=== PATIENT | male | born 1950 | race Caucasian/White ===

== ENCOUNTER 2017-08-18 07:17 | Inpatient (IN) ==
[2017-08-18] MEDS ORDERED: ALBUTEROL 2.5 MG/3 ML NEB RESP TX SCH (07:30)
[2017-08-18] MEDS ORDERED: PIPERACILLIN/TAZOBACTAM 3,375 MG in SODIUM CHLORIDE 0.9% 100 ML IV STA (07:52)
[2017-08-18 08:14] LABS: Basophils % 0.1 % (0.0-0.8); Eosinophils % 0.6 % (0.00-10.9); Hemoglobin 11.3 GM/DL (14.0-18.0); Immature Granulocytes % 0.7 %; Immature Granulocytes Absolute 0.05 #; Lymphocytes # 0.5 10*3/uL (1.4-4.0); Lymphocytes % 7.9 % (21.2-54.2); Mean Corpuscular HGB Conc 33.2 GM/DL (32-36); Mean Corpuscular Hemoglobin 30 PG (27-34); Mean Corpuscular Volume 90.2 FL (87-102); Mean Platelet Volume 9.6 FL (9.6-12.0); Monocytes # 0.4 10*3/uL (0.11-0.8); Monocytes % 5.9 % (1.7-12.7); Neutrophils # 5.7 10*3/uL (1.4-7.4); Neutrophils % 84.8 % (38.7-73.9); Red Blood Count 3.77 MC/CUMM (3.8-5.5); Red Cell Distribution Width 14.4 % (9.3-17.3); White Blood Count 6.7 T/CUMM (4-12)
[2017-08-18 08:30] LABS: Platelet Count 96 T/CUMM (130-400)
[2017-08-18] MEDS ORDERED: PIPERACILLIN/TAZOBACTAM 3,375 MG VIAL IV ONE (08:37)
[2017-08-18] MEDS ORDERED: SODIUM CHLORIDE 0.9% 100 ML IV ONE (08:38)
[2017-08-18 08:43] LABS: Alanine Aminotransferase 31 U/L (16-61); Alkaline Phosphatase 85 U/L (45-117); Aspartate Amino Transferase 47 U/L (0-37); Blood Urea Nitrogen 19 MG/DL (7-18); Calcium 9.1 MG/DL (8.5-10.1); Glucose 153 MG/DL (74-106); Osmolality,Calculated 281.5 MOS/KG (273-304); Sodium 139 MMOL/L (136-145); Total Protein 6.7 G/DL (6.4-8.3); Troponin I Only < 0.015 NG/ML (0.00-0.045)
[2017-08-18] MEDS ORDERED: ONDANSETRON 4 MG/2 ML VIAL IV PRN (09:40)
[2017-08-18] MEDS ORDERED: GLUCAGON 1 MG VIAL IM PRN ×2 (09:40→10:37)
[2017-08-18] MEDS ORDERED: DEXTROSE 50% 25 GM/50 ML VIAL IV PRN ×2 (09:40→10:37)
[2017-08-18] MEDS ORDERED: PROPOFOL 1,000 MG/100 ML BOTTLE IV ONE ×2 (10:48→12:58)
[2017-08-18] MEDS ORDERED: VECURONIUM 10 MG VIAL IV ONE ×2 (10:49→11:00)
[2017-08-18] MEDS ORDERED: hydrALAZINE 20 MG/1 ML VIAL IV ONE (11:00)
[2017-08-18] MEDS ORDERED: MIDAZOLAM 2 MG/2 ML VIAL IV ONE (11:00)
[2017-08-18] MEDS ORDERED: LABETALOL 200 MG/40 ML VIAL IV ONE ×2 (11:00→11:19)
[2017-08-18] MEDS ORDERED: hydrALAZINE 20 MG/1 ML VIAL ONE (11:02)
[2017-08-18] MEDS ORDERED: MIDAZOLAM 2 MG/2 ML VIAL ONE (11:08)
[2017-08-18] MEDS ORDERED: ETOMIDATE 20 MG/10 ML VIAL IV ONE (11:24)
[2017-08-18] MEDS ORDERED: SUCCINYLCHOLINE 200 MG/10 ML VIAL ONE (11:25)
[2017-08-18] MEDS ORDERED: INSULIN LISPRO 100 UNIT/ML SUBCUT SCH (11:30)
[2017-08-18 12:27] LABS: ABG Base Excess 2.6 MMOL/L (-2.5-2.5); ABG HCO3 26.8 MMOL/L (20-26); ABG PCO2 44.4 MM HG (35-48); ABG PH 7.404 (7.35-7.45); ABG TCO2 24.9 MMOL/L (23-27)
[2017-08-18] MEDS: LACTATED RINGERS 1,000 ML IV SCH ×3 (14:31→22:39)
[2017-08-18] MEDS: PROPOFOL 1,000 MG/100 ML BOTTLE IV SCH ×2 (14:33→20:55)
[2017-08-18] MEDS: VANCOMYCIN INJ 1,250 MG in SODIUM CHLORIDE 0.45% 250 ML IV SCH ×2 (14:35→23:35)
[2017-08-18] MEDS: INSULIN REGULAR 100 UNIT/ML SUBCUT SCH ×2 (14:35→18:10)
[2017-08-18] MEDS: PROPRANOLOL 20 MG TABLET PO SCH ×2 (18:10→20:34)
[2017-08-18] MEDS: PIPERACILLIN/TAZOBACTAM 3,375 MG in SODIUM CHLORIDE 0.9% 100 ML IV SCH ×2 (18:16→23:34)
[2017-08-19] MEDS: INSULIN REGULAR 100 UNIT/ML SUBCUT SCH ×4 (00:19→17:27)
[2017-08-19] MEDS: PROPOFOL 1,000 MG/100 ML BOTTLE IV SCH ×4 (01:28→22:12)
[2017-08-19 04:07] LABS: ABG Base Excess 5.2 MMOL/L (-2.5-2.5); ABG HCO3 29.1 MMOL/L (20-26); ABG Oxygen Saturation 99.2 % (95-100); ABG PCO2 39.4 MM HG (35-48); ABG PH 7.476 (7.35-7.45); ABG TCO2 25.6 MMOL/L (23-27); Allen Test Positive; Pt O2 Delivery Device Ventilator
[2017-08-19 05:46] LABS: INR 1.1; PT Patient Result 11.7 SECS; Partial Thromboplastin Time 26.6 SECS (0-40)
[2017-08-19 05:50] LABS: Basophils % 0.4 % (0.0-0.8); Eosinophils # 0.1 10*3/uL (0.0-0.87); Eosinophils % 1.2 % (0.00-10.9); Hematocrit 29.1 VOL% (42.0-52.0); Hemoglobin 9.8 GM/DL (14.0-18.0); Immature Granulocytes % 1.5 %; Immature Granulocytes Absolute 0.07 #; Lymphocytes # 0.6 10*3/uL (1.4-4.0); Lymphocytes % 12.9 % (21.2-54.2); Mean Corpuscular HGB Conc 33.7 GM/DL (32-36); Mean Corpuscular Hemoglobin 30 PG (27-34); Mean Corpuscular Volume 88.7 FL (87-102); Mean Platelet Volume 9.6 FL (9.6-12.0); Monocytes # 0.3 10*3/uL (0.11-0.8); Neutrophils # 3.8 10*3/uL (1.4-7.4); Platelet Count 71 T/CUMM (130-400); Red Blood Count 3.28 MC/CUMM (3.8-5.5); Red Cell Distribution Width 14.5 % (9.3-17.3); White Blood Count 4.8 T/CUMM (4-12)
[2017-08-19 06:13] LABS: Albumin 2.3 G/DL (3.4-5.0); Bilirubin,Direct 0.35 MG/DL (0.0-0.20); Bilirubin,Indirect 0.5 MG/DL (0.0-1.0); Bilirubin,Total 0.8 MG/DL (0.2-1.0); Total Protein 5.2 G/DL (6.4-8.3)
[2017-08-19 06:14] LABS: Calcium 7.9 MG/DL (8.5-10.1); Osmolality,Calculated 282.4 MOS/KG (273-304); Potassium 3.8 MMOL/L (3.5-5.1)
[2017-08-19 06:21] LABS: Hypochromasia 1+; Microcytosis 1+; Ovalocytes Few; Platelet Estimate Decreased
[2017-08-19 06:31] LABS: Albumin 2.3 G/DL (3.4-5.0); Bilirubin,Total 0.8 MG/DL (0.2-1.0); Calcium 8.1 MG/DL (8.5-10.1); Magnesium 1.8 MG/DL (1.8-2.4); Osmolality,Calculated 283.4 MOS/KG (273-304); Phosphorous 3.2 MG/DL (2.5-4.9); Potassium 3.8 MMOL/L (3.5-5.1); Total Protein 5.1 G/DL (6.4-8.3)
[2017-08-19 09:23] LABS: ABG Base Excess 5.1 MMOL/L (-2.5-2.5); ABG HCO3 29.6 MMOL/L (20-26); ABG Oxygen Saturation 98.1 % (95-100); ABG PCO2 43.1 MM HG (35-48); ABG PH 7.454 (7.35-7.45); ABG PO2 118.4 MM HG (80-95); ABG TCO2 30.9 MMOL/L (23-27); Pt O2 Delivery Device Ventilator
[2017-08-19] MEDS: PIPERACILLIN/TAZOBACTAM 3,375 MG in SODIUM CHLORIDE 0.9% 100 ML IV SCH ×2 (09:40→15:00)
[2017-08-19] MEDS: PROPRANOLOL 20 MG TABLET PO SCH ×3 (09:41→20:32)
[2017-08-19] MEDS: LACTATED RINGERS 1,000 ML IV SCH (09:41)
[2017-08-19] MEDS: VANCOMYCIN INJ 1,250 MG in SODIUM CHLORIDE 0.45% 250 ML IV SCH (10:58)
[2017-08-19 12:28] LABS: Hepatitis A Ab IgM Quant 0.02 Index; Hepatitis A Ab IgM Result Negative (Negative); Hepatitis B Core IgM Result Negative (Negative); Hepatitis B Surface Ag Quant < 0.10 Index; Hepatitis B Surface Ag Result Negative (Negative); Hepatitis C Virus Ab Quant 0.32 Index; Hepatitis C Virus Ab Result Negative (Negative)
[2017-08-19] MEDS ORDERED: MIDAZOLAM 2 MG/2 ML VIAL ONE (12:47)
[2017-08-19] MEDS ORDERED: fentaNYL 100 MCG/2 ML VIAL ONE (12:47)
[2017-08-19] MEDS ORDERED: SEVOFLURANE 1 UNIT/15 MINUTE INH ONE (12:47)
[2017-08-20] MEDS: INSULIN REGULAR 100 UNIT/ML SUBCUT SCH ×4 (00:05→17:34)
[2017-08-20] MEDS: PIPERACILLIN/TAZOBACTAM 3,375 MG in SODIUM CHLORIDE 0.9% 100 ML IV SCH ×3 (00:23→16:15)
[2017-08-20] MEDS: VANCOMYCIN INJ 1,250 MG in SODIUM CHLORIDE 0.45% 250 ML IV SCH ×3 (00:24→23:39)
[2017-08-20] MEDS: LACTATED RINGERS 1,000 ML IV SCH ×2 (00:25→16:17)
[2017-08-20 05:49] LABS: Magnesium 1.7 MG/DL (1.8-2.4); Phosphorous 2.8 MG/DL (2.5-4.9); Prealbumin 5.6 MG/DL (20-40)
[2017-08-20] MEDS: PROPOFOL 1,000 MG/100 ML BOTTLE IV SCH ×2 (06:19→17:17)
[2017-08-20 07:54] LABS: Allen Test Positive; Pt O2 Delivery Device Ventilator
[2017-08-20 07:56] LABS: ABG Base Excess 3.1 MMOL/L (-2.5-2.5); ABG HCO3 27.2 MMOL/L (20-26); ABG Oxygen Saturation 98.9 % (95-100); ABG PCO2 46.9 MM HG (35-48); ABG PH 7.394 (7.35-7.45); ABG TCO2 25.9 MMOL/L (23-27)
[2017-08-20] MEDS: PROPRANOLOL 20 MG TABLET PO SCH ×3 (07:59→21:50)
[2017-08-20] MEDS: MORPHINE 2 MG/1 ML SYRINGE IV PRN ×2 (10:15→22:22)
[2017-08-20] MEDS ORDERED: IBUPROFEN LYSINE IV SCH (14:00)
[2017-08-20] MEDS ORDERED: ACETAMINOPHEN 325 MG/10.15 ML UDCUP NG SCH (14:00)
[2017-08-20] MEDS: hydrALAZINE 20 MG/1 ML VIAL IV PRN (14:05)
[2017-08-20] MEDS: KETOROLAC 30 MG/1 ML VIAL IV PRN (14:05)
[2017-08-20] MEDS: LORazepam 2 MG/1 ML VIAL IV PRN ×3 (14:06→23:44)
[2017-08-21] MEDS: PIPERACILLIN/TAZOBACTAM 3,375 MG in SODIUM CHLORIDE 0.9% 100 ML IV SCH ×2 (00:26→08:30)
[2017-08-21] MEDS: INSULIN REGULAR 100 UNIT/ML SUBCUT SCH ×4 (00:28→18:11)
[2017-08-21 02:43] LABS: ABG Base Excess 3.9 MMOL/L (-2.5-2.5); ABG HCO3 30.3 MMOL/L (20-26); ABG Oxygen Saturation 93.8 % (95-100); ABG PCO2 54.1 MM HG (35-48); ABG PH 7.366 (7.35-7.45); ABG PO2 72.7 MM HG (80-95); Allen Test Positive
[2017-08-21] MEDS: LACTATED RINGERS 1,000 ML IV SCH ×2 (05:42→19:15)
[2017-08-21] MEDS ORDERED: LIDOCAINE 2% 20 ML VIAL RESP TX ONE (08:13)
[2017-08-21] MEDS ORDERED: LIDOCAINE 1% 20 ML VIAL MISC INJ ONE (08:13)
[2017-08-21] MEDS: PROPRANOLOL 20 MG TABLET PO SCH ×3 (08:33→20:35)
[2017-08-21] MEDS: methylPREDNISolone SOD SUC 40 MG/1 ML VIAL IV SCH ×2 (08:46→20:35)
[2017-08-21] MEDS: PROPOFOL 1,000 MG/100 ML BOTTLE IV SCH ×2 (11:41→19:45)
[2017-08-21] MEDS: cefTRIAXone 1,000 MG in SYRINGE 1 EACH IV SCH (14:57)
[2017-08-21] MEDS: metroNIDAZOLE INJ 500 MG in PREMIX 1 EACH IV SCH ×2 (15:51→22:58)
[2017-08-22] MEDS: INSULIN REGULAR 100 UNIT/ML SUBCUT SCH ×4 (00:24→18:35)
[2017-08-22 03:02] LABS: ABG Base Excess 3.7 MMOL/L (-2.5-2.5); ABG HCO3 29.9 MMOL/L (20-26); ABG Oxygen Saturation 98.3 % (95-100); ABG PCO2 53.1 MM HG (35-48); ABG PH 7.368 (7.35-7.45); ABG PO2 131.2 MM HG (80-95); ABG TCO2 31.5 MMOL/L (23-27); Allen Test Positive; Pt O2 Delivery Device Ventilator
[2017-08-22] MEDS: PROPOFOL 1,000 MG/100 ML BOTTLE IV SCH ×2 (03:06→07:29)
[2017-08-22 05:13] LABS: Basophils % 0.1 % (0.0-0.8); Eosinophils % 0.1 % (0.00-10.9); Hematocrit 30.2 VOL% (42.0-52.0); Hemoglobin 9.9 GM/DL (14.0-18.0); Immature Granulocytes % 0.9 %; Lymphocytes # 0.7 10*3/uL (1.4-4.0); Lymphocytes % 6.5 % (21.2-54.2); Mean Corpuscular HGB Conc 32.8 GM/DL (32-36); Mean Corpuscular Hemoglobin 30 PG (27-34); Mean Platelet Volume 10.6 FL (9.6-12.0); Monocytes # 0.6 10*3/uL (0.11-0.8); Monocytes % 5.5 % (1.7-12.7); Neutrophils # 9.6 10*3/uL (1.4-7.4); Neutrophils % 86.9 % (38.7-73.9); Platelet Count 102 T/CUMM (130-400); Red Blood Count 3.32 MC/CUMM (3.8-5.5); Red Cell Distribution Width 13.8 % (9.3-17.3)
[2017-08-22 05:33] LABS: Calcium 9.3 MG/DL (8.5-10.1); Magnesium 2.4 MG/DL (1.8-2.4); Osmolality,Calculated 291.4 MOS/KG (273-304)
[2017-08-22] MEDS: metroNIDAZOLE INJ 500 MG in PREMIX 1 EACH IV SCH ×3 (06:17→23:18)
[2017-08-22 08:33] LABS: Albumin 2.2 G/DL (3.4-5.0); Bilirubin,Total 0.4 MG/DL (0.2-1.0); Calcium 9.2 MG/DL (8.5-10.1); Osmolality,Calculated 293.3 MOS/KG (273-304); Total Protein 5.6 G/DL (6.4-8.3)
[2017-08-22] MEDS: PROPRANOLOL 20 MG TABLET PO SCH ×3 (08:51→21:28)
[2017-08-22] MEDS: methylPREDNISolone SOD SUC 40 MG/1 ML VIAL IV SCH ×2 (08:52→21:28)
[2017-08-22] MEDS: LACTATED RINGERS 1,000 ML IV SCH ×2 (08:52→22:50)
[2017-08-22] MEDS ORDERED: DEXMEDETOMIDINE 200 MCG in SODIUM CHLORIDE 0.9% 48 ML IV SCH (09:30)
[2017-08-22] MEDS ORDERED: ACETAMINOPHEN 325 MG/10.15 ML UDCUP NG PRN (15:00)
[2017-08-22] MEDS: cefTRIAXone 1,000 MG in SYRINGE 1 EACH IV SCH (15:41)
[2017-08-22] MEDS ORDERED: DEXMEDETOMIDINE 200 MCG in SODIUM CHLORIDE 0.9% 48 ML IV PRN (17:30)
[2017-08-22] MEDS ORDERED: PROPOFOL 1,000 MG/100 ML BOTTLE IV PRN (17:30)
[2017-08-22] MEDS: MORPHINE 2 MG/1 ML SYRINGE IV PRN ×2 (18:35→21:28)
[2017-08-22] MEDS: LORazepam 2 MG/1 ML VIAL IV PRN (22:25)
[2017-08-23] MEDS: MORPHINE 2 MG/1 ML SYRINGE IV PRN ×5 (00:22→15:45)
[2017-08-23] MEDS: INSULIN REGULAR 100 UNIT/ML SUBCUT SCH ×4 (01:23→18:00)
[2017-08-23] MEDS: metroNIDAZOLE INJ 500 MG in PREMIX 1 EACH IV SCH ×3 (06:34→23:32)
[2017-08-23 06:39] LABS: Basophils % 0.1 % (0.0-0.8); Hematocrit 32.3 VOL% (42.0-52.0); Hemoglobin 10.3 GM/DL (14.0-18.0); Immature Granulocytes % 1.3 %; Immature Granulocytes Absolute 0.22 #; Lymphocytes # 0.8 10*3/uL (1.4-4.0); Lymphocytes % 4.9 % (21.2-54.2); Mean Corpuscular HGB Conc 31.9 GM/DL (32-36); Mean Corpuscular Hemoglobin 29 PG (27-34); Mean Platelet Volume 10.2 FL (9.6-12.0); Monocytes # 0.7 10*3/uL (0.11-0.8); Monocytes % 4.2 % (1.7-12.7); Neutrophils # 15.4 10*3/uL (1.4-7.4); Neutrophils % 89.5 % (38.7-73.9); Platelet Count 158 T/CUMM (130-400); Red Blood Count 3.55 MC/CUMM (3.8-5.5); White Blood Count 17.3 T/CUMM (4-12)
[2017-08-23 07:15] LABS: Albumin 2.4 G/DL (3.4-5.0); Bilirubin,Total 0.8 MG/DL (0.2-1.0); Calcium 9.2 MG/DL (8.5-10.1); Osmolality,Calculated 296.1 MOS/KG (273-304); Potassium 5.3 MMOL/L (3.5-5.1); Total Protein 6.1 G/DL (6.4-8.3)
[2017-08-23 07:37] LABS: Lymphocytes 5 % (20-55); Segmented Neutrophils 93 % (50-85); Total Cells Counted 100
[2017-08-23 07:38] LABS: Hypochromasia 1+; Microcytosis Slight; Ovalocytes Slight; Platelet Estimate Normal
[2017-08-23] MEDS: PROPRANOLOL 20 MG TABLET PO SCH ×3 (09:46→21:12)
[2017-08-23] MEDS: methylPREDNISolone SOD SUC 40 MG/1 ML VIAL IV SCH ×2 (09:53→21:12)
[2017-08-23] MEDS: LACTATED RINGERS 1,000 ML IV SCH (12:25)
[2017-08-23] MEDS: ALBUTEROL/IPRATROPIUM 3 ML NEB RESP TX SCH ×2 (12:42→19:30)
[2017-08-23] MEDS: cefTRIAXone 1,000 MG in SYRINGE 1 EACH IV SCH (14:26)
[2017-08-23] MEDS: KETOROLAC 30 MG/1 ML VIAL IV PRN (14:26)
[2017-08-23] MEDS: LORazepam 2 MG/1 ML VIAL IV PRN (17:40)
[2017-08-23 21:50] LABS: Apearance,Urine Slightly Hazy (Clear); Bilirubin,Urine Negative (Negative); Blood, Urine Small mg/dL (Negative); Glucose,Urine (UA) Negative (Negative); Granular Casts,Urine 6 /LPF (0-1); Hyaline Casts,Urine 11 /LPF (0-3); Ketones,Urine Negative (Negative); Mucus,Urine Occasional /LPF (Occasional); Nitrite,Urine Negative (Negative); Protein,Urine Negative; RBC,Urine 22 /HPF (0-4); Urine Color Amber (Yellow); Urine Specific Gravity 1.024 (1.001-1.035); Urine Urobilinogen < 2.0 EU/DL (0.2-1.0); WBC,Urine 1 /HPF (0-6)
[2017-08-24] MEDS: MORPHINE 2 MG/1 ML SYRINGE IV PRN ×2 (00:21→04:56)
[2017-08-24] MEDS: LORazepam 2 MG/1 ML VIAL IV PRN ×3 (00:22→18:00)
[2017-08-24] MEDS: INSULIN REGULAR 100 UNIT/ML SUBCUT SCH ×4 (00:37→18:37)
[2017-08-24] MEDS: ALBUTEROL/IPRATROPIUM 3 ML NEB RESP TX SCH ×4 (01:19→20:12)
[2017-08-24] MEDS: LEVOFLOXACIN INJ 750 MG in PREMIX 1 EACH IV SCH (01:22)
[2017-08-24 05:21] LABS: Basophils % 0.1 % (0.0-0.8); Hematocrit 31.7 VOL% (42.0-52.0); Hemoglobin 10.1 GM/DL (14.0-18.0); Immature Granulocytes Absolute 0.12 #; Lymphocytes # 0.8 10*3/uL (1.4-4.0); Lymphocytes % 6.3 % (21.2-54.2); Mean Corpuscular HGB Conc 31.9 GM/DL (32-36); Mean Corpuscular Hemoglobin 29 PG (27-34); Mean Corpuscular Volume 92.2 FL (87-102); Monocytes # 0.6 10*3/uL (0.11-0.8); Neutrophils # 10.6 10*3/uL (1.4-7.4); Neutrophils % 87.6 % (38.7-73.9); Platelet Count 134 T/CUMM (130-400); Red Blood Count 3.44 MC/CUMM (3.8-5.5); Red Cell Distribution Width 13.9 % (9.3-17.3); White Blood Count 12.1 T/CUMM (4-12)
[2017-08-24 06:35] LABS: Calcium 9.2 MG/DL (8.5-10.1)
[2017-08-24 07:01] LABS: Osmolality,Calculated 301.1 MOS/KG (273-304)
[2017-08-24 07:02] LABS: Potassium 5.3 MMOL/L (3.5-5.1)
[2017-08-24] MEDS: LACTATED RINGERS 1,000 ML IV SCH (07:05)
[2017-08-24] MEDS: methylPREDNISolone SOD SUC 40 MG/1 ML VIAL IV SCH ×2 (08:30→20:42)
[2017-08-24] MEDS: PROPRANOLOL 20 MG TABLET PO SCH ×3 (08:31→20:43)
[2017-08-24] MEDS: KETOROLAC 30 MG/1 ML VIAL IV PRN ×2 (10:53→17:59)
[2017-08-25] MEDS: INSULIN REGULAR 100 UNIT/ML SUBCUT SCH ×4 (00:17→18:17)
[2017-08-25] MEDS: ALBUTEROL/IPRATROPIUM 3 ML NEB RESP TX SCH ×4 (00:57→19:22)
[2017-08-25] MEDS: LEVOFLOXACIN INJ 750 MG in PREMIX 1 EACH IV SCH (01:50)
[2017-08-25] MEDS: LACTATED RINGERS 1,000 ML IV SCH ×2 (03:05→07:07)
[2017-08-25 03:55] LABS: Basophils % 0.1 % (0.0-0.8); Hemoglobin 10.1 GM/DL (14.0-18.0); Immature Granulocytes % 1.2 %; Immature Granulocytes Absolute 0.15 #; Lymphocytes # 0.6 10*3/uL (1.4-4.0); Lymphocytes % 4.9 % (21.2-54.2); Mean Corpuscular HGB Conc 31.6 GM/DL (32-36); Mean Corpuscular Hemoglobin 29 PG (27-34); Mean Corpuscular Volume 92.8 FL (87-102); Monocytes # 0.9 10*3/uL (0.11-0.8); Monocytes % 7.1 % (1.7-12.7); Neutrophils # 10.7 10*3/uL (1.4-7.4); Neutrophils % 86.7 % (38.7-73.9); Platelet Count 152 T/CUMM (130-400); Red Blood Count 3.45 MC/CUMM (3.8-5.5); Red Cell Distribution Width 13.9 % (9.3-17.3); White Blood Count 12.3 T/CUMM (4-12)
[2017-08-25 04:18] LABS: Lymphocytes 6 % (20-55); Segmented Neutrophils 93 % (50-85); Total Cells Counted 100
[2017-08-25 04:20] LABS: Ovalocytes 1+; Platelet Estimate Normal
[2017-08-25 04:21] LABS: Hypochromasia 1+
[2017-08-25 04:24] LABS: Calcium 9.4 MG/DL (8.5-10.1); Potassium 5.4 MMOL/L (3.5-5.1)
[2017-08-25 06:43] LABS: Magnesium 2.6 MG/DL (1.8-2.4); Phosphorous 3.3 MG/DL (2.5-4.9); Prealbumin 9.3 MG/DL (20-40)
[2017-08-25] MEDS: methylPREDNISolone SOD SUC 40 MG/1 ML VIAL IV SCH (09:24)
[2017-08-25] MEDS: PROPRANOLOL 20 MG TABLET PO SCH ×3 (09:24→20:35)
[2017-08-25] MEDS: SULFAMETHOX/TRIMETHOPRIM 200-40 MG/5 ML -20 ML UDCUP PEG SCH ×2 (10:55→20:35)
[2017-08-25] MEDS: LORazepam 2 MG/1 ML VIAL IV PRN (23:01)
[2017-08-26] MEDS: ALBUTEROL/IPRATROPIUM 3 ML NEB RESP TX SCH ×4 (00:42→19:12)
[2017-08-26] MEDS: INSULIN REGULAR 100 UNIT/ML SUBCUT SCH ×5 (01:35→23:53)
[2017-08-26] MEDS: LEVOFLOXACIN INJ 750 MG in PREMIX 1 EACH IV SCH (02:14)
[2017-08-26 06:44] LABS: Calcium 9.6 MG/DL (8.5-10.1); Osmolality,Calculated 301.8 MOS/KG (273-304)
[2017-08-26] MEDS: methylPREDNISolone SOD SUC 40 MG/1 ML VIAL IV SCH (07:41)
[2017-08-26] MEDS: LACTULOSE 20 GM/30 ML UDCUP PO SCH ×2 (08:23→21:08)
[2017-08-26] MEDS: SULFAMETHOX/TRIMETHOPRIM 200-40 MG/5 ML -20 ML UDCUP PEG SCH ×2 (08:24→21:08)
[2017-08-26] MEDS: PROPRANOLOL 20 MG TABLET PO SCH ×3 (08:24→21:08)
[2017-08-26] MEDS: RIFAXIMIN 550 MG TABLET PO SCH ×2 (08:24→21:08)
[2017-08-26] MEDS: hydrALAZINE 20 MG/1 ML VIAL IV PRN (18:16)
[2017-08-27] MEDS: ALBUTEROL/IPRATROPIUM 3 ML NEB RESP TX SCH ×4 (00:14→19:31)
[2017-08-27] MEDS: INSULIN REGULAR 100 UNIT/ML SUBCUT SCH ×3 (06:05→18:12)
[2017-08-27] MEDS: SULFAMETHOX/TRIMETHOPRIM 200-40 MG/5 ML -20 ML UDCUP PEG SCH ×2 (09:50→20:56)
[2017-08-27] MEDS: LACTULOSE 20 GM/30 ML UDCUP PO SCH ×2 (09:51→20:57)
[2017-08-27] MEDS: PROPRANOLOL 20 MG TABLET PO SCH ×3 (09:52→20:57)
[2017-08-27] MEDS: RIFAXIMIN 550 MG TABLET PO SCH ×2 (09:53→20:57)
[2017-08-27] MEDS: NYSTATIN 500,000 UNIT/5 ML UDCUP SWISH/SWAL SCH ×4 (10:45→20:56)
[2017-08-27] MEDS: LORazepam 2 MG/1 ML VIAL IV PRN (20:56)
[2017-08-28] MEDS: INSULIN REGULAR 100 UNIT/ML SUBCUT SCH ×4 (01:25→17:37)
[2017-08-28] MEDS: ALBUTEROL/IPRATROPIUM 3 ML NEB RESP TX SCH ×4 (01:45→21:04)
[2017-08-28] MEDS: LACTULOSE 20 GM/30 ML UDCUP PO SCH ×2 (09:34→21:17)
[2017-08-28] MEDS: NYSTATIN 500,000 UNIT/5 ML UDCUP SWISH/SWAL SCH ×4 (09:34→21:18)
[2017-08-28] MEDS: RIFAXIMIN 550 MG TABLET PO SCH ×2 (09:35→21:19)
[2017-08-28] MEDS: PROPRANOLOL 20 MG TABLET PO SCH ×3 (09:35→21:19)
[2017-08-28] MEDS: SULFAMETHOX/TRIMETHOPRIM 200-40 MG/5 ML -20 ML UDCUP PEG SCH ×2 (10:02→21:17)
[2017-08-28] MEDS: LORazepam 2 MG/1 ML VIAL IV PRN ×2 (14:24→21:18)
[2017-08-29] MEDS: INSULIN REGULAR 100 UNIT/ML SUBCUT SCH ×4 (00:53→19:24)
[2017-08-29] MEDS: ALBUTEROL/IPRATROPIUM 3 ML NEB RESP TX SCH ×4 (01:21→19:34)
[2017-08-29] MEDS: LORazepam 2 MG/1 ML VIAL IV PRN ×3 (04:09→22:38)
[2017-08-29 05:40] LABS: Calcium 8.5 MG/DL (8.5-10.1); Magnesium 1.8 MG/DL (1.8-2.4); Osmolality,Calculated 285.4 MOS/KG (273-304); Phosphorous 3.2 MG/DL (2.5-4.9); Potassium 4.6 MMOL/L (3.5-5.1)
[2017-08-29] MEDS: PROPRANOLOL 20 MG TABLET PO SCH ×3 (10:02→20:35)
[2017-08-29] MEDS: SULFAMETHOX/TRIMETHOPRIM 200-40 MG/5 ML -20 ML UDCUP PEG SCH ×2 (10:02→20:35)
[2017-08-29] MEDS: NYSTATIN 500,000 UNIT/5 ML UDCUP SWISH/SWAL SCH ×3 (10:03→20:34)
[2017-08-29] MEDS: RIFAXIMIN 550 MG TABLET PO SCH ×2 (10:03→20:36)
[2017-08-29] MEDS: LACTULOSE 20 GM/30 ML UDCUP PO SCH ×2 (10:03→20:34)
[2017-08-30] MEDS: INSULIN REGULAR 100 UNIT/ML SUBCUT SCH ×4 (00:57→17:44)
[2017-08-30] MEDS: ALBUTEROL/IPRATROPIUM 3 ML NEB RESP TX SCH ×4 (01:21→20:39)
[2017-08-30] MEDS: LORazepam 2 MG/1 ML VIAL IV PRN ×3 (06:10→23:00)
[2017-08-30] MEDS: PROPRANOLOL 20 MG TABLET PO SCH ×3 (09:31→20:32)
[2017-08-30] MEDS: RIFAXIMIN 550 MG TABLET PO SCH ×2 (09:31→20:33)
[2017-08-30] MEDS: LACTULOSE 20 GM/30 ML UDCUP PO SCH ×2 (09:32→20:33)
[2017-08-30] MEDS: SULFAMETHOX/TRIMETHOPRIM 200-40 MG/5 ML -20 ML UDCUP PEG SCH ×2 (09:32→20:32)
[2017-08-30] MEDS: NYSTATIN 500,000 UNIT/5 ML UDCUP SWISH/SWAL SCH ×4 (09:32→20:32)
[2017-08-30] MEDS: CLORAZEPATE 7.5 MG TABLET PO PRN (20:32)
[2017-08-31] MEDS: INSULIN REGULAR 100 UNIT/ML SUBCUT SCH ×4 (00:20→18:00)
[2017-08-31] MEDS: ALBUTEROL/IPRATROPIUM 3 ML NEB RESP TX SCH ×4 (01:40→19:56)
[2017-08-31] MEDS: LORazepam 2 MG/1 ML VIAL IV PRN ×3 (03:00→21:16)
[2017-08-31 03:51] LABS: ABG Base Excess 7.9 MMOL/L (-2.5-2.5); ABG HCO3 33.6 MMOL/L (20-26); ABG Oxygen Saturation 97.2 % (95-100); ABG PCO2 53.9 MM HG (35-48); ABG PH 7.413 (7.35-7.45); ABG PO2 99.6 MM HG (80-95); ABG TCO2 35.3 MMOL/L (23-27); Allen Test Positive
[2017-08-31] MEDS: SULFAMETHOX/TRIMETHOPRIM 200-40 MG/5 ML -20 ML UDCUP PEG SCH ×2 (08:40→21:16)
[2017-08-31] MEDS: LACTULOSE 20 GM/30 ML UDCUP PO SCH ×2 (08:41→21:16)
[2017-08-31] MEDS: PROPRANOLOL 20 MG TABLET PO SCH ×3 (08:41→21:16)
[2017-08-31] MEDS: RIFAXIMIN 550 MG TABLET PO SCH ×2 (08:41→21:16)
[2017-08-31] MEDS: NYSTATIN 500,000 UNIT/5 ML UDCUP SWISH/SWAL SCH ×4 (08:41→21:15)
[2017-08-31] MEDS: CLORAZEPATE 7.5 MG TABLET PO PRN ×2 (11:30→21:16)
[2017-09-01] MEDS: ALBUTEROL/IPRATROPIUM 3 ML NEB RESP TX SCH ×4 (00:38→20:31)
[2017-09-01] MEDS: INSULIN REGULAR 100 UNIT/ML SUBCUT SCH ×4 (00:55→18:44)
[2017-09-01] MEDS: LORazepam 2 MG/1 ML VIAL IV PRN ×2 (00:55→16:35)
[2017-09-01 05:50] LABS: Magnesium 1.8 MG/DL (1.8-2.4); Phosphorous 2.7 MG/DL (2.5-4.9); Prealbumin 5.4 MG/DL (20-40)
[2017-09-01] MEDS: LACTULOSE 20 GM/30 ML UDCUP PO SCH ×2 (09:24→21:38)
[2017-09-01] MEDS: MUPIROCIN 2% OINT 22 GM TUBE TOP SCH ×2 (09:25→21:15)
[2017-09-01] MEDS: NYSTATIN 500,000 UNIT/5 ML UDCUP SWISH/SWAL SCH ×4 (09:25→21:15)
[2017-09-01] MEDS: RIFAXIMIN 550 MG TABLET PO SCH ×2 (09:26→21:14)
[2017-09-01] MEDS: PROPRANOLOL 20 MG TABLET PO SCH ×3 (09:26→21:14)
[2017-09-01] MEDS: SULFAMETHOX/TRIMETHOPRIM 200-40 MG/5 ML -20 ML UDCUP PEG SCH ×2 (12:20→21:15)
[2017-09-01] MEDS: CLORAZEPATE 7.5 MG TABLET PO PRN (21:14)
[2017-09-02] MEDS: INSULIN REGULAR 100 UNIT/ML SUBCUT SCH ×4 (00:03→17:29)
[2017-09-02] MEDS: ALBUTEROL/IPRATROPIUM 3 ML NEB RESP TX SCH ×4 (00:18→20:02)
[2017-09-02] MEDS ORDERED: ALBUTEROL 2.5 MG/3 ML NEB RESP TX PRN (10:35)
[2017-09-02] MEDS ORDERED: GLIMEPIRIDE 4 MG TABLET PO PRN (10:35)
[2017-09-02] MEDS: IPRATROPIUM 500 MCG/2.5 ML NEB RESP TX SCH ×3 (11:33→14:02)
[2017-09-02] MEDS: LACTULOSE 20 GM/30 ML UDCUP PO SCH ×4 (12:30→21:26)
[2017-09-02] MEDS: MUPIROCIN 2% OINT 22 GM TUBE TOP SCH ×2 (12:30→23:56)
[2017-09-02] MEDS: PROPRANOLOL 20 MG TABLET PO SCH ×3 (12:30→21:23)
[2017-09-02] MEDS: RIFAXIMIN 550 MG TABLET PO SCH ×4 (12:31→21:26)
[2017-09-02] MEDS: NYSTATIN 500,000 UNIT/5 ML UDCUP SWISH/SWAL SCH ×4 (12:32→21:26)
[2017-09-02] MEDS: SPIRONOLACTONE 50 MG TABLET PO SCH (13:33)
[2017-09-02] MEDS: GABAPENTIN 300 MG CAPSULE PO SCH ×2 (13:34→21:23)
[2017-09-02] MEDS: ALFUZOSIN 10 MG TABLET PO SCH (13:34)
[2017-09-02] MEDS: SULFAMETHOX/TRIMETHOPRIM 200-40 MG/5 ML -20 ML UDCUP PEG SCH (13:44)
[2017-09-02] MEDS: BUDESONIDE/FORMOTEROL 160-4.5 INHALER 6 GM INH SCH ×2 (17:34→21:27)
[2017-09-02] MEDS: TAMSULOSIN 0.4 MG CAPSULE PO SCH (21:23)
[2017-09-02] MEDS: CLORAZEPATE 7.5 MG TABLET PO PRN (21:23)
[2017-09-03] MEDS: ALBUTEROL/IPRATROPIUM 3 ML NEB RESP TX SCH ×4 (01:13→19:20)
[2017-09-03] MEDS: INSULIN REGULAR 100 UNIT/ML SUBCUT SCH ×4 (01:49→18:06)
[2017-09-03 06:00] LABS: Basophils % 0.2 % (0.0-0.8); Eosinophils # 0.1 10*3/uL (0.0-0.87); Eosinophils % 2.3 % (0.00-10.9); Hematocrit 27.3 VOL% (42.0-52.0); Hemoglobin 8.8 GM/DL (14.0-18.0); Immature Granulocytes Absolute 0.06 #; Lymphocytes # 0.7 10*3/uL (1.4-4.0); Lymphocytes % 11.6 % (21.2-54.2); Mean Corpuscular HGB Conc 32.2 GM/DL (32-36); Mean Corpuscular Hemoglobin 29 PG (27-34); Mean Corpuscular Volume 89.5 FL (87-102); Mean Platelet Volume 11.2 FL (9.6-12.0); Monocytes # 0.9 10*3/uL (0.11-0.8); Neutrophils # 4.3 10*3/uL (1.4-7.4); Neutrophils % 69.9 % (38.7-73.9); Platelet Count 128 T/CUMM (130-400); Red Blood Count 3.05 MC/CUMM (3.8-5.5); Red Cell Distribution Width 14.6 % (9.3-17.3); White Blood Count 6.2 T/CUMM (4-12)
[2017-09-03 06:37] LABS: Calcium 8.3 MG/DL (8.5-10.1); Magnesium 1.6 MG/DL (1.8-2.4); Osmolality,Calculated 272.8 MOS/KG (273-304); Potassium 4.1 MMOL/L (3.5-5.1)
[2017-09-03] MEDS: GABAPENTIN 300 MG CAPSULE PO SCH ×2 (11:19→22:25)
[2017-09-03] MEDS: BUDESONIDE/FORMOTEROL 160-4.5 INHALER 6 GM INH SCH ×2 (11:19→23:37)
[2017-09-03] MEDS: PROPRANOLOL 20 MG TABLET PO SCH ×3 (11:19→22:25)
[2017-09-03] MEDS: SPIRONOLACTONE 50 MG TABLET PO SCH (11:19)
[2017-09-03] MEDS: RIFAXIMIN 550 MG TABLET PO SCH ×2 (11:19→22:30)
[2017-09-03] MEDS: LACTULOSE 20 GM/30 ML UDCUP PO SCH ×2 (11:19→22:24)
[2017-09-03] MEDS: ALFUZOSIN 10 MG TABLET PO SCH (11:19)
[2017-09-03] MEDS: NYSTATIN 500,000 UNIT/5 ML UDCUP SWISH/SWAL SCH ×4 (11:19→22:25)
[2017-09-03] MEDS: MUPIROCIN 2% OINT 22 GM TUBE TOP SCH ×2 (11:19→22:38)
[2017-09-03] MEDS: IPRATROPIUM 500 MCG/2.5 ML NEB RESP TX SCH (12:36)
[2017-09-03] MEDS: CLORAZEPATE 7.5 MG TABLET PO PRN (22:24)
[2017-09-03] MEDS: TAMSULOSIN 0.4 MG CAPSULE PO SCH (22:25)
[2017-09-04] MEDS: INSULIN REGULAR 100 UNIT/ML SUBCUT SCH ×4 (00:32→18:45)
[2017-09-04] MEDS: ALBUTEROL/IPRATROPIUM 3 ML NEB RESP TX SCH ×4 (00:40→20:05)
[2017-09-04 06:23] LABS: Magnesium 1.5 MG/DL (1.8-2.4); Prealbumin 4.1 MG/DL (20-40)
[2017-09-04] MEDS: RIFAXIMIN 550 MG TABLET PO SCH ×2 (09:14→21:33)
[2017-09-04] MEDS: CLORAZEPATE 7.5 MG TABLET PO PRN ×2 (09:14→21:32)
[2017-09-04] MEDS: PROPRANOLOL 20 MG TABLET PO SCH ×3 (09:14→21:32)
[2017-09-04] MEDS: GABAPENTIN 300 MG CAPSULE PO SCH ×2 (09:14→21:33)
[2017-09-04] MEDS: SPIRONOLACTONE 50 MG TABLET PO SCH (09:14)
[2017-09-04] MEDS: ALFUZOSIN 10 MG TABLET PO SCH (09:14)
[2017-09-04] MEDS: MUPIROCIN 2% OINT 22 GM TUBE TOP SCH ×2 (09:15→21:39)
[2017-09-04] MEDS: NYSTATIN 500,000 UNIT/5 ML UDCUP SWISH/SWAL SCH ×4 (09:15→21:38)
[2017-09-04] MEDS: LACTULOSE 20 GM/30 ML UDCUP PO SCH ×2 (09:15→21:38)
[2017-09-04] MEDS: BUDESONIDE/FORMOTEROL 160-4.5 INHALER 6 GM INH SCH ×2 (09:21→21:38)
[2017-09-04] MEDS: MAGNESIUM OXIDE 400 MG TABLET PO SCH ×2 (14:10→21:32)
[2017-09-04] MEDS: TAMSULOSIN 0.4 MG CAPSULE PO SCH (21:32)
[2017-09-05] MEDS: ALBUTEROL/IPRATROPIUM 3 ML NEB RESP TX SCH ×2 (00:27→07:37)
[2017-09-05] MEDS: INSULIN REGULAR 100 UNIT/ML SUBCUT SCH ×2 (00:41→06:35)
[2017-09-05 08:26] VITALS: BP 112/58
[2017-09-05] MEDS: RIFAXIMIN 550 MG TABLET PO SCH (09:04)
[2017-09-05] MEDS: GABAPENTIN 300 MG CAPSULE PO SCH (09:04)
[2017-09-05] MEDS: ALFUZOSIN 10 MG TABLET PO SCH (09:04)
[2017-09-05] MEDS: NYSTATIN 500,000 UNIT/5 ML UDCUP SWISH/SWAL SCH (09:04)
[2017-09-05] MEDS: PROPRANOLOL 20 MG TABLET PO SCH (09:04)
[2017-09-05] MEDS: LACTULOSE 20 GM/30 ML UDCUP PO SCH (09:05)
[2017-09-05] MEDS: MAGNESIUM OXIDE 400 MG TABLET PO SCH (09:05)
[2017-09-05] MEDS: BUDESONIDE/FORMOTEROL 160-4.5 INHALER 6 GM INH SCH (09:06)
[2017-09-05] MEDS: MUPIROCIN 2% OINT 22 GM TUBE TOP SCH (09:06)
[2017-09-05] MEDS: SPIRONOLACTONE 50 MG TABLET PO SCH (09:12)
== END 2017-09-05 11:16 | disposition home health service (06) | DRG 4 ==
LOC: N.ED 07:17 → N.EDINP 09:10 → N.CC 10:05 → N.2E 09-02 21:37
PROVIDERS: ADMIT Internal Medicine Pulmonary Disease; ATTEND Internal Medicine Pulmonary Disease

== ENCOUNTER 2018-09-21 13:16 | Inpatient (IN) ==
[2018-09-21] MEDS ORDERED: ALBUTEROL/IPRATROPIUM 3 ML NEB RESP TX PRN (13:27)
[2018-09-21] MEDS ORDERED: GLUCAGON 1 MG VIAL IM PRN (13:40)
[2018-09-21] MEDS ORDERED: DEXTROSE 50% 25 GM/50 ML VIAL IV PRN (13:40)
[2018-09-21] MEDS: ALBUTEROL/IPRATROPIUM 3 ML NEB RESP TX SCH ×2 (15:20→19:17)
[2018-09-21] MEDS ORDERED: AMINOPHYLLINE 250 MG in SODIUM CHLORIDE 0.9% 100 ML IV ONE (17:00)
[2018-09-21] MEDS: INSULIN REGULAR 100 UNIT/ML SUBCUT SCH ×2 (17:48→21:55)
[2018-09-21] MEDS: ALBUTEROL 2 MG TABLET PO SCH (17:49)
[2018-09-21] MEDS: MONTELUKAST 10 MG TABLET PO SCH ×2 (17:50→21:55)
[2018-09-21] MEDS: MEROPENEM 1,000 MG in SODIUM CHLORIDE 0.9% 100 ML IV SCH (17:51)
[2018-09-21] MEDS: methylPREDNISolone SOD SUC 40 MG/1 ML VIAL IM SCH ×2 (17:52→18:08)
[2018-09-21 18:04] LABS: Basophils % 0.4 % (0.0-0.8); Eosinophils # 0.4 10*3/uL (0.0-0.87); Eosinophils % 5.9 % (0.00-10.9); Hematocrit 32.2 VOL% (42.0-52.0); Hemoglobin 9.8 GM/DL (14.0-18.0); Immature Granulocytes % 0.6 %; Immature Granulocytes Absolute 0.04 #; Lymphocytes # 1.1 10*3/uL (1.4-4.0); Lymphocytes % 14.9 % (21.2-54.2); Mean Corpuscular HGB Conc 30.4 GM/DL (32-36); Mean Corpuscular Hemoglobin 26 PG (27-34); Mean Platelet Volume 9.7 FL (9.6-12.0); Monocytes # 0.6 10*3/uL (0.11-0.8); Monocytes % 8.5 % (1.7-12.7); Neutrophils # 5.1 10*3/uL (1.4-7.4); Neutrophils % 69.7 % (38.7-73.9); Platelet Count 161 T/CUMM (130-400); Red Blood Count 3.79 MC/CUMM (3.8-5.5); Red Cell Distribution Width 15.4 % (9.3-17.3); White Blood Count 7.3 T/CUMM (4-12)
[2018-09-21] MEDS: methylPREDNISolone SOD SUC 40 MG/1 ML VIAL IV SCH (18:09)
[2018-09-21 18:27] LABS: Albumin 2.9 G/DL (3.4-5.0); Bilirubin,Total 0.7 MG/DL (0.2-1.0); Calcium 9.6 MG/DL (8.5-10.1); Osmolality,Calculated 273.8 MOS/KG (273-304); Potassium 4.2 MMOL/L (3.5-5.1); Thyroid Stimulating Hormone 1.32 uIU/ml (0.358-3.74); Total Protein 8.1 G/DL (6.4-8.3)
[2018-09-21] MEDS: SODIUM CHLORIDE 0.45% 1,000 ML IV SCH (18:35)
[2018-09-21] MEDS ORDERED: ACETAMINOPHEN 325 MG TABLET PO PRN (19:54)
[2018-09-21] MEDS ORDERED: ONDANSETRON 4 MG/2 ML VIAL IV PRN (20:05)
[2018-09-21] MEDS: GABAPENTIN 300 MG CAPSULE PO SCH (21:55)
[2018-09-21] MEDS: AMINOPHYLLINE 500 MG in SODIUM CHLORIDE 0.9% 480 ML IV SCH (21:57)
[2018-09-22] MEDS: MEROPENEM 1,000 MG in SODIUM CHLORIDE 0.9% 100 ML IV SCH ×3 (02:09→17:08)
[2018-09-22] MEDS: ALBUTEROL 2 MG TABLET PO SCH ×3 (02:10→16:48)
[2018-09-22 05:06] LABS: Basophils % 0.2 % (0.0-0.8); Eosinophils % 0.2 % (0.00-10.9); Hematocrit 29.5 VOL% (42.0-52.0); Hemoglobin 9.3 GM/DL (14.0-18.0); Immature Granulocytes % 0.8 %; Immature Granulocytes Absolute 0.04 #; Lymphocytes # 0.4 10*3/uL (1.4-4.0); Lymphocytes % 8.1 % (21.2-54.2); Mean Corpuscular HGB Conc 31.5 GM/DL (32-36); Mean Corpuscular Hemoglobin 26 PG (27-34); Mean Corpuscular Volume 83.6 FL (87-102); Monocytes # 0.1 10*3/uL (0.11-0.8); Monocytes % 1.7 % (1.7-12.7); Neutrophils # 4.6 10*3/uL (1.4-7.4); Platelet Count 129 T/CUMM (130-400); Red Blood Count 3.53 MC/CUMM (3.8-5.5); Red Cell Distribution Width 14.7 % (9.3-17.3); White Blood Count 5.2 T/CUMM (4-12)
[2018-09-22 05:26] LABS: Calcium 8.9 MG/DL (8.5-10.1); Osmolality,Calculated 278.2 MOS/KG (273-304); Potassium 4.2 MMOL/L (3.5-5.1)
[2018-09-22] MEDS: methylPREDNISolone SOD SUC 40 MG/1 ML VIAL IV SCH ×2 (06:08→18:18)
[2018-09-22] MEDS: ALBUTEROL/IPRATROPIUM 3 ML NEB RESP TX SCH ×4 (08:02→19:05)
[2018-09-22] MEDS: LACTULOSE 20 GM/30 ML UDCUP PO SCH ×2 (08:41→22:20)
[2018-09-22] MEDS: INSULIN REGULAR 100 UNIT/ML SUBCUT SCH ×4 (08:41→21:09)
[2018-09-22] MEDS: MONTELUKAST 10 MG TABLET PO SCH ×2 (08:42→22:21)
[2018-09-22] MEDS: FUROSEMIDE 40 MG TABLET PO SCH ×2 (08:42→22:21)
[2018-09-22] MEDS: SPIRONOLACTONE 50 MG TABLET PO SCH ×2 (08:42→22:22)
[2018-09-22] MEDS: TAMSULOSIN 0.4 MG CAPSULE PO SCH (08:43)
[2018-09-22] MEDS: PANTOPRAZOLE 40 MG TABLET PO SCH (08:43)
[2018-09-22] MEDS: MAGNESIUM CHLORIDE 64 MG TABLET PO SCH ×2 (11:10→22:21)
[2018-09-22] MEDS: SODIUM CHLORIDE 0.45% 1,000 ML IV SCH (13:15)
[2018-09-22] MEDS: GABAPENTIN 300 MG CAPSULE PO SCH (22:21)
[2018-09-23] MEDS: ALBUTEROL 2 MG TABLET PO SCH ×3 (01:39→16:09)
[2018-09-23] MEDS: MEROPENEM 1,000 MG in SODIUM CHLORIDE 0.9% 100 ML IV SCH ×3 (01:39→16:11)
[2018-09-23] MEDS: methylPREDNISolone SOD SUC 40 MG/1 ML VIAL IV SCH ×2 (06:17→17:57)
[2018-09-23 06:22] LABS: Basophils % 0.1 % (0.0-0.8); Hematocrit 28.9 VOL% (42.0-52.0); Immature Granulocytes % 0.9 %; Lymphocytes # 0.7 10*3/uL (1.4-4.0); Lymphocytes % 6.4 % (21.2-54.2); Mean Corpuscular HGB Conc 31.1 GM/DL (32-36); Mean Corpuscular Hemoglobin 26 PG (27-34); Mean Corpuscular Volume 82.6 FL (87-102); Mean Platelet Volume 10.4 FL (9.6-12.0); Monocytes # 0.5 10*3/uL (0.11-0.8); Monocytes % 4.2 % (1.7-12.7); Neutrophils # 10.2 10*3/uL (1.4-7.4); Neutrophils % 88.4 % (38.7-73.9); Platelet Count 153 T/CUMM (130-400); Red Cell Distribution Width 15.3 % (9.3-17.3); White Blood Count 11.6 T/CUMM (4-12)
[2018-09-23 06:57] LABS: Calcium 9.2 MG/DL (8.5-10.1); Osmolality,Calculated 282.8 MOS/KG (273-304); Potassium 4.4 MMOL/L (3.5-5.1)
[2018-09-23 07:07] LABS: Folate 11.5 NG/ML (5.4-24.0)
[2018-09-23] MEDS: ALBUTEROL/IPRATROPIUM 3 ML NEB RESP TX SCH ×4 (07:30→19:38)
[2018-09-23 07:31] LABS: % Iron Saturation 5.8 % (18-50)
[2018-09-23] MEDS: INSULIN REGULAR 100 UNIT/ML SUBCUT SCH ×4 (09:35→21:50)
[2018-09-23] MEDS: LACTULOSE 20 GM/30 ML UDCUP PO SCH ×2 (09:35→21:50)
[2018-09-23] MEDS: FUROSEMIDE 40 MG TABLET PO SCH ×2 (09:36→21:51)
[2018-09-23] MEDS: MAGNESIUM CHLORIDE 64 MG TABLET PO SCH ×2 (09:36→21:51)
[2018-09-23] MEDS: PANTOPRAZOLE 40 MG TABLET PO SCH (09:36)
[2018-09-23] MEDS: TAMSULOSIN 0.4 MG CAPSULE PO SCH (09:36)
[2018-09-23] MEDS: MONTELUKAST 10 MG TABLET PO SCH ×2 (09:36→21:51)
[2018-09-23] MEDS: SPIRONOLACTONE 50 MG TABLET PO SCH ×2 (09:36→21:51)
[2018-09-23] MEDS: FERROUS SULFATE 325 MG TABLET PO SCH ×2 (11:51→21:52)
[2018-09-23] MEDS: METOCLOPRAMIDE 10 MG TABLET PO SCH ×3 (11:51→21:54)
[2018-09-23] MEDS: AMINOPHYLLINE 500 MG in SODIUM CHLORIDE 0.9% 480 ML IV SCH (16:09)
[2018-09-23] MEDS: GLIMEPIRIDE 4 MG TABLET PO SCH (16:09)
[2018-09-23] MEDS: THEOPHYLLINE ER 300 MG TABLET PO SCH (16:11)
[2018-09-23] MEDS ORDERED: TAMSULOSIN 0.4 MG CAPSULE PO SCH (21:00)
[2018-09-23] MEDS: GABAPENTIN 300 MG CAPSULE PO SCH (21:52)
[2018-09-24] MEDS: ALBUTEROL 2 MG TABLET PO SCH ×3 (00:38→17:00)
[2018-09-24] MEDS: MEROPENEM 1,000 MG in SODIUM CHLORIDE 0.9% 100 ML IV SCH ×3 (00:38→17:00)
[2018-09-24] MEDS: methylPREDNISolone SOD SUC 40 MG/1 ML VIAL IV SCH ×2 (05:32→17:00)
[2018-09-24 06:25] LABS: Basophils % 0.1 % (0.0-0.8); Hemoglobin 9.2 GM/DL (14.0-18.0); Immature Granulocytes % 0.9 %; Lymphocytes # 0.7 10*3/uL (1.4-4.0); Lymphocytes % 6.4 % (21.2-54.2); Mean Corpuscular HGB Conc 30.7 GM/DL (32-36); Mean Corpuscular Hemoglobin 26 PG (27-34); Mean Platelet Volume 9.9 FL (9.6-12.0); Monocytes # 0.5 10*3/uL (0.11-0.8); Monocytes % 4.7 % (1.7-12.7); Neutrophils # 9.6 10*3/uL (1.4-7.4); Neutrophils % 87.9 % (38.7-73.9); Platelet Count 171 T/CUMM (130-400); Red Blood Count 3.57 MC/CUMM (3.8-5.5); Red Cell Distribution Width 15.3 % (9.3-17.3); White Blood Count 10.9 T/CUMM (4-12)
[2018-09-24 06:40] LABS: Calcium 9.3 MG/DL (8.5-10.1); Potassium 4.5 MMOL/L (3.5-5.1)
[2018-09-24] MEDS: ALBUTEROL/IPRATROPIUM 3 ML NEB RESP TX SCH ×4 (07:25→19:27)
[2018-09-24] MEDS: INSULIN REGULAR 100 UNIT/ML SUBCUT SCH ×4 (09:12→21:08)
[2018-09-24] MEDS: FUROSEMIDE 40 MG TABLET PO SCH ×2 (09:13→21:09)
[2018-09-24] MEDS: METOCLOPRAMIDE 10 MG TABLET PO SCH ×4 (09:13→21:09)
[2018-09-24] MEDS: MAGNESIUM CHLORIDE 64 MG TABLET PO SCH ×2 (09:13→21:09)
[2018-09-24] MEDS: GLIMEPIRIDE 4 MG TABLET PO SCH (09:13)
[2018-09-24] MEDS: MONTELUKAST 10 MG TABLET PO SCH ×2 (09:13→21:09)
[2018-09-24] MEDS: ALFUZOSIN 10 MG TABLET PO SCH (09:13)
[2018-09-24] MEDS: TAMSULOSIN 0.4 MG CAPSULE PO SCH (09:13)
[2018-09-24] MEDS: SPIRONOLACTONE 50 MG TABLET PO SCH ×2 (09:13→21:09)
[2018-09-24] MEDS: PANTOPRAZOLE 40 MG TABLET PO SCH (09:14)
[2018-09-24] MEDS: THEOPHYLLINE ER 300 MG TABLET PO SCH ×2 (09:14→17:00)
[2018-09-24] MEDS: LACTULOSE 20 GM/30 ML UDCUP PO SCH ×2 (09:14→21:08)
[2018-09-24] MEDS: FERROUS SULFATE 325 MG TABLET PO SCH ×2 (09:14→21:09)
[2018-09-24] MEDS: GABAPENTIN 300 MG CAPSULE PO SCH (21:09)
[2018-09-25] MEDS: MEROPENEM 1,000 MG in SODIUM CHLORIDE 0.9% 100 ML IV SCH (01:49)
[2018-09-25] MEDS: ALBUTEROL 2 MG TABLET PO SCH ×2 (01:49→08:58)
[2018-09-25] MEDS: methylPREDNISolone SOD SUC 40 MG/1 ML VIAL IV SCH (05:41)
[2018-09-25 07:37] VITALS: BP 121/63
[2018-09-25] MEDS: ALBUTEROL/IPRATROPIUM 3 ML NEB RESP TX SCH (07:40)
[2018-09-25] MEDS: LACTULOSE 20 GM/30 ML UDCUP PO SCH (08:49)
[2018-09-25] MEDS: ALFUZOSIN 10 MG TABLET PO SCH (08:50)
[2018-09-25] MEDS: MAGNESIUM CHLORIDE 64 MG TABLET PO SCH (08:50)
[2018-09-25] MEDS: GLIMEPIRIDE 4 MG TABLET PO SCH (08:51)
[2018-09-25] MEDS: TAMSULOSIN 0.4 MG CAPSULE PO SCH (08:51)
[2018-09-25] MEDS: FUROSEMIDE 40 MG TABLET PO SCH (08:52)
[2018-09-25] MEDS: MONTELUKAST 10 MG TABLET PO SCH (08:52)
[2018-09-25] MEDS: METOCLOPRAMIDE 10 MG TABLET PO SCH (08:52)
[2018-09-25] MEDS: SPIRONOLACTONE 50 MG TABLET PO SCH (08:52)
[2018-09-25] MEDS: PANTOPRAZOLE 40 MG TABLET PO SCH (08:52)
[2018-09-25] MEDS: THEOPHYLLINE ER 300 MG TABLET PO SCH (08:53)
[2018-09-25] MEDS: FERROUS SULFATE 325 MG TABLET PO SCH (08:53)
== END 2018-09-25 12:53 | disposition home or self-care (01) | DRG 202 ==
LOC: N.5E → OBSVTOIN 16:16
PROVIDERS: ADMIT Internal Medicine Pulmonary Disease; ATTEND Internal Medicine Pulmonary Disease

== ENCOUNTER 2022-07-15 13:27 | Inpatient (IN) ==
[2022-07-15] MEDS ORDERED: methylPREDNISolone SOD SUC 125 MG/2 ML VIAL IV STA (14:37)
[2022-07-15] MEDS ORDERED: MAGNESIUM SULF RIDER 2 GM/50 ML PREMIX IV STA (14:37)
[2022-07-15 14:43] LABS: Albumin 1.9 G/DL (3.4-5.0); Bilirubin,Total 1.3 MG/DL (0.20-1.00); Calcium 9.9 MG/DL (8.5-10.1); Osmolality,Calculated 288.7 MOS/KG (273-304); Potassium 3.9 MMOL/L (3.5-5.1); Total Protein 6.2 G/DL (6.4-8.2)
[2022-07-15] MEDS ORDERED: cefTRIAXone 1,000 MG in SODIUM CHLORIDE 0.9% 100 ML IV STA (14:57)
[2022-07-15 15:33] LABS: Hyaline Casts,Urine 4 /LPF (0-3); Mucus,Urine Occasional /LPF (Occasional); RBC,Urine 1 /HPF (0-4)
[2022-07-15] MEDS: IPRATROPIUM 500 MCG/2.5 ML NEB RESP TX STA ×2 (15:33→17:27)
[2022-07-15 15:34] LABS: Bilirubin,Urine Negative (Negative); Blood, Urine Negative (Negative); Glucose,Urine (UA) Negative (Negative); Ketones,Urine Negative (Negative); Nitrite,Urine Negative (Negative); Protein,Urine Negative (Negative); Urine Appearance Clear (Clear); Urine Color Yellow (Yellow); Urine Urobilinogen 0.2 eU/dL (<2.0); Urine pH 5.5 (4.5-8.0)
[2022-07-15 15:40] LABS: Basophils # 0.1 10*3/uL (0.0-0.2); Basophils % 0.4 % (0.0-0.8); Hematocrit 37.2 VOL% (42.0-52.0); Hemoglobin 11.9 GM/DL (14.0-18.0); Immature Granulocytes % 1.4 %; Immature Granulocytes Absolute 0.41 #; Lymphocytes # 1.1 10*3/uL (1.4-4.0); Lymphocytes % 3.8 % (21.2-54.2); Mean Corpuscular Volume 94.2 FL (87-102); Mean Platelet Volume 9.9 FL (9.6-12.0); Monocytes # 1.4 10*3/uL (0.11-0.8); Monocytes % 4.8 % (1.7-12.7); Neutrophils % 89.6 % (38.7-73.9); Platelet Count 201 T/CUMM (130-400); Red Blood Count 3.95 MC/CUMM (3.8-5.5); Red Cell Distribution Width 13.5 % (9.3-17.3); White Blood Count 28.4 T/CUMM (4-12)
[2022-07-15 15:49] LABS: INR 1.3; Partial Thromboplastin Time 31.2 SECS (23.7-32.9)
[2022-07-15 16:21] LABS: Arterial Base Excess iSTAT 9 MMOL/L (-2.5-2.5); Arterial Bicarbonate iSTAT 34.9 MMOL/L (20-26); Arterial O2 Saturation iSTAT 89 % (95-100); Arterial PCO2 iSTAT 50 MM HG (35-48); Arterial PO2 iSTAT 55 MM HG (80-95); Arterial Total CO2 iSTAT 36 MMO/L (23-27); Arterial pH iSTAT 7.449 (7.35-7.45)
[2022-07-15] MEDS ORDERED: AZITHROMYCIN INJ 500 MG in SODIUM CHLORIDE 0.9% 250 ML IV STA (16:21)
[2022-07-15] MEDS ORDERED: ONDANSETRON 4 MG/2 ML VIAL IV PRN (16:51)
[2022-07-15] MEDS ORDERED: ACETAMINOPHEN 325 MG TABLET PO PRN (16:51)
[2022-07-15] MEDS ORDERED: ALBUTEROL 2.5 MG/3 ML NEB RESP TX PRN (16:51)
[2022-07-15] MEDS ORDERED: BISACODYL 5 MG TABLET PO PRN (16:51)
[2022-07-15] MEDS ORDERED: SODIUM CHLORIDE 0.9% 500 ML IV STA (16:52)
[2022-07-15] MEDS: FUROSEMIDE 40 MG/4 ML VIAL IV STA ×2 (17:26→17:56)
[2022-07-15 17:44] LABS: Hypochromia 1+; Lymphocytes 2 % (20-55); Total Cells Counted 100
[2022-07-15 17:45] LABS: Microcytosis Slight; Platelet Estimate Normal
[2022-07-15] MEDS: ENOXAPARIN 40 MG/0.4 ML SYRINGE SUBCUT SCH (17:56)
[2022-07-15] MEDS: PANTOPRAZOLE 40 MG VIAL IV SCH (17:56)
[2022-07-15 18:09] LABS: Arterial Base Excess iSTAT 9 MMOL/L (-2.5-2.5); Arterial Bicarbonate iSTAT 34.6 MMOL/L (20-26); Arterial O2 Saturation iSTAT 93 % (95-100); Arterial PCO2 iSTAT 50 MM HG (35-48); Arterial PO2 iSTAT 64 MM HG (80-95); Arterial Total CO2 iSTAT 36 MMO/L (23-27); Arterial pH iSTAT 7.448 (7.35-7.45)
[2022-07-15] MEDS: methylPREDNISolone SOD SUC 40 MG/1 ML VIAL IV SCH (18:20)
[2022-07-15] MEDS: ALBUTEROL/IPRATROPIUM 3 ML NEB RESP TX SCH (19:55)
[2022-07-15] MEDS: FERROUS SULFATE 325 MG TABLET PO SCH (20:26)
[2022-07-15] MEDS: SULFAMETH/TRIMETH INJ 200 MG in DEXTROSE 5% 250 ML IV SCH (20:26)
[2022-07-16] MEDS: ALBUTEROL/IPRATROPIUM 3 ML NEB RESP TX SCH ×4 (00:52→20:28)
[2022-07-16] MEDS: methylPREDNISolone SOD SUC 40 MG/1 ML VIAL IV SCH ×3 (00:59→16:51)
[2022-07-16] MEDS: SULFAMETH/TRIMETH INJ 200 MG in DEXTROSE 5% 250 ML IV SCH ×4 (02:00→21:00)
[2022-07-16 03:33] LABS: ABG Base Excess 6.4 MMOL/L (-2.5-2.5); ABG HCO3 30.1 MMOL/L (20-26); ABG Oxygen Saturation 90.4 % (95-100); ABG PH 7.396 (7.35-7.45); ABG PO2 67.8 MM HG (80-95); ABG TCO2 29.5 MMOL/L (23-27)
[2022-07-16 05:29] LABS: Basophils # 0.1 10*3/uL (0.0-0.2); Basophils % 0.4 % (0.0-0.8); Hematocrit 32.9 VOL% (42.0-52.0); Hemoglobin 10.6 GM/DL (14.0-18.0); Immature Granulocytes % 0.9 %; Immature Granulocytes Absolute 0.14 #; Lymphocytes # 0.6 10*3/uL (1.4-4.0); Lymphocytes % 3.6 % (21.2-54.2); Mean Corpuscular HGB Conc 32.2 GM/DL (32-36); Mean Corpuscular Volume 92.2 FL (87-102); Mean Platelet Volume 10.3 FL (9.6-12.0); Monocytes # 0.5 10*3/uL (0.11-0.8); Monocytes % 3.4 % (1.7-12.7); Neutrophils % 91.7 % (38.7-73.9); Platelet Count 146 T/CUMM (130-400); Red Blood Count 3.57 MC/CUMM (3.8-5.5); Red Cell Distribution Width 13.2 % (9.3-17.3); White Blood Count 15.8 T/CUMM (4-12)
[2022-07-16 05:48] LABS: Band Neutrophils 1 % (0-10); Lymphocytes 3 % (20-55); Nucleated Red Blood Cells 1 /100 WBC (0-5); Platelet Estimate Adequate; Total Cells Counted 100
[2022-07-16 05:49] LABS: Hypochromia Slight
[2022-07-16 05:50] LABS: Microcytosis Slight
[2022-07-16 06:01] LABS: Calcium 9.8 MG/DL (8.5-10.1); Osmolality,Calculated 296.7 MOS/KG (273-304); Potassium 3.5 MMOL/L (3.5-5.1)
[2022-07-16] MEDS: LACTULOSE 20 GM/30 ML UDCUP PO SCH (08:08)
[2022-07-16] MEDS: FERROUS SULFATE 325 MG TABLET PO SCH ×2 (08:08→21:33)
[2022-07-16] MEDS ORDERED: INSULIN GLARGINE 100 UNIT/ML SUBCUT ONE (10:02)
[2022-07-16] MEDS: FLUCONAZOLE INJ 200 MG/100 ML PREMIX IV SCH (10:41)
[2022-07-16] MEDS ORDERED: INSULIN LISPRO 100 UNIT/ML SUBCUT SCH (12:00)
[2022-07-16] MEDS: MONTELUKAST 10 MG TABLET PO SCH (12:27)
[2022-07-16] MEDS: NYSTATIN 500,000 UNIT/5 ML UDCUP SWISH/SWAL SCH ×3 (14:36→21:33)
[2022-07-16] MEDS ORDERED: LACTATED RINGERS 500 ML IV ONE (16:04)
[2022-07-16] MEDS: ENOXAPARIN 40 MG/0.4 ML SYRINGE SUBCUT SCH (16:47)
[2022-07-16] MEDS: PANTOPRAZOLE 40 MG VIAL IV SCH (16:47)
[2022-07-16] MEDS: THEOPHYLLINE ER 300 MG TABLET PO SCH (16:47)
[2022-07-16] MEDS: INSULIN LISPRO 100 UNIT/ML SUBCUT SCH ×2 (18:00→23:11)
[2022-07-16] MEDS: INSULIN GLARGINE 100 UNIT/ML SUBCUT SCH (23:10)
[2022-07-17 01:04] LABS: Basophils # 0.1 10*3/uL (0.0-0.2); Basophils % 0.3 % (0.0-0.8); Hemoglobin 9.9 GM/DL (14.0-18.0); Immature Granulocytes Absolute 0.17 #; Lymphocytes # 0.6 10*3/uL (1.4-4.0); Lymphocytes % 3.4 % (21.2-54.2); Mean Corpuscular Volume 91.7 FL (87-102); Monocytes # 0.4 10*3/uL (0.11-0.8); Monocytes % 2.5 % (1.7-12.7); Neutrophils % 92.8 % (38.7-73.9); Platelet Count 148 T/CUMM (130-400); Red Blood Count 3.27 MC/CUMM (3.8-5.5); Red Cell Distribution Width 13.2 % (9.3-17.3); White Blood Count 16.7 T/CUMM (4-12)
[2022-07-17] MEDS: ALBUTEROL/IPRATROPIUM 3 ML NEB RESP TX SCH ×4 (01:21→19:12)
[2022-07-17 01:25] LABS: Calcium 10.2 MG/DL (8.5-10.1); Osmolality,Calculated 286.1 MOS/KG (273-304); Potassium 3.2 MMOL/L (3.5-5.1)
[2022-07-17 01:54] LABS: Lymphocytes 3 % (20-55); Platelet Estimate Decreased; Total Cells Counted 100
[2022-07-17] MEDS: methylPREDNISolone SOD SUC 40 MG/1 ML VIAL IV SCH ×4 (03:40→16:41)
[2022-07-17] MEDS: SULFAMETH/TRIMETH INJ 200 MG in DEXTROSE 5% 250 ML IV SCH ×4 (03:40→20:54)
[2022-07-17] MEDS: INSULIN LISPRO 100 UNIT/ML SUBCUT SCH ×6 (04:11→21:23)
[2022-07-17] MEDS ORDERED: KETOROLAC 15 MG/1 ML VIAL IV ONE (09:15)
[2022-07-17] MEDS: NYSTATIN 500,000 UNIT/5 ML UDCUP SWISH/SWAL SCH ×4 (10:03→20:52)
[2022-07-17] MEDS: LACTULOSE 20 GM/30 ML UDCUP PO SCH (10:03)
[2022-07-17] MEDS: FERROUS SULFATE 325 MG TABLET PO SCH ×2 (10:03→20:52)
[2022-07-17] MEDS: THEOPHYLLINE ER 300 MG TABLET PO SCH ×2 (10:04→16:40)
[2022-07-17] MEDS: MONTELUKAST 10 MG TABLET PO SCH (10:04)
[2022-07-17] MEDS: LIDOCAINE 5% PATCH TRANSDERM SCH ×2 (10:06→20:53)
[2022-07-17] MEDS: FLUCONAZOLE INJ 200 MG/100 ML PREMIX IV SCH (11:52)
[2022-07-17] MEDS ORDERED: POTASSIUM CHLORIDE 10 MEQ TABLET PO ONE (14:43)
[2022-07-17] MEDS: PANTOPRAZOLE 40 MG VIAL IV SCH (16:40)
[2022-07-17] MEDS: ENOXAPARIN 40 MG/0.4 ML SYRINGE SUBCUT SCH (16:41)
[2022-07-17] MEDS: INSULIN GLARGINE 100 UNIT/ML SUBCUT SCH (20:54)
[2022-07-18] MEDS: ALBUTEROL/IPRATROPIUM 3 ML NEB RESP TX SCH ×4 (00:22→19:40)
[2022-07-18] MEDS: INSULIN LISPRO 100 UNIT/ML SUBCUT SCH ×6 (01:13→20:45)
[2022-07-18] MEDS: methylPREDNISolone SOD SUC 40 MG/1 ML VIAL IV SCH ×3 (01:25→16:16)
[2022-07-18] MEDS: SULFAMETH/TRIMETH INJ 200 MG in DEXTROSE 5% 250 ML IV SCH ×4 (01:28→20:46)
[2022-07-18 05:13] LABS: Basophils # 0.1 10*3/uL (0.0-0.2); Basophils % 0.3 % (0.0-0.8); Hematocrit 30.6 VOL% (42.0-52.0); Hemoglobin 10.1 GM/DL (14.0-18.0); Immature Granulocytes % 1.8 %; Immature Granulocytes Absolute 0.33 #; Lymphocytes # 0.6 10*3/uL (1.4-4.0); Lymphocytes % 3.1 % (21.2-54.2); Mean Corpuscular Volume 90.8 FL (87-102); Mean Platelet Volume 10.1 FL (9.6-12.0); Monocytes # 0.5 10*3/uL (0.11-0.8); Monocytes % 2.5 % (1.7-12.7); Neutrophils % 92.3 % (38.7-73.9); Platelet Count 158 T/CUMM (130-400); Red Blood Count 3.37 MC/CUMM (3.8-5.5); Red Cell Distribution Width 13.1 % (9.3-17.3); White Blood Count 18.6 T/CUMM (4-12)
[2022-07-18 05:32] LABS: Calcium 10.8 MG/DL (8.5-10.1); Osmolality,Calculated 270.2 MOS/KG (273-304); Potassium 3.6 MMOL/L (3.5-5.1)
[2022-07-18 05:44] LABS: Band Neutrophils 1 % (0-10); Lymphocytes 1 % (20-55); Total Cells Counted 100
[2022-07-18 05:45] LABS: Platelet Estimate Adequate
[2022-07-18 05:46] LABS: % Iron Saturation 21.2 % (18-50); Ferritin 597.7 ng/mL (26-388)
[2022-07-18] MEDS ORDERED: MAGNESIUM SULF RIDER 2 GM/50 ML PREMIX IV ONE (07:22)
[2022-07-18] MEDS: THEOPHYLLINE ER 300 MG TABLET PO SCH ×2 (08:18→16:20)
[2022-07-18] MEDS: FERROUS SULFATE 325 MG TABLET PO SCH ×2 (08:19→20:44)
[2022-07-18] MEDS: NYSTATIN 500,000 UNIT/5 ML UDCUP SWISH/SWAL SCH ×4 (08:20→20:46)
[2022-07-18] MEDS: MONTELUKAST 10 MG TABLET PO SCH (08:20)
[2022-07-18] MEDS: LIDOCAINE 5% PATCH TRANSDERM SCH ×2 (08:20→20:45)
[2022-07-18] MEDS: LACTULOSE 20 GM/30 ML UDCUP PO SCH (08:29)
[2022-07-18] MEDS: FLUCONAZOLE INJ 200 MG/100 ML PREMIX IV SCH (10:04)
[2022-07-18] MEDS: amLODIPine 5 MG TABLET PO SCH ×2 (12:49→15:03)
[2022-07-18] MEDS: METOPROLOL TARTRATE 25 MG TABLET PO SCH ×2 (15:03→20:45)
[2022-07-18] MEDS: PANTOPRAZOLE 40 MG VIAL IV SCH (16:17)
[2022-07-18] MEDS: INSULIN GLARGINE 100 UNIT/ML SUBCUT SCH (20:45)
[2022-07-19] MEDS: ALBUTEROL/IPRATROPIUM 3 ML NEB RESP TX SCH ×5 (00:34→23:48)
[2022-07-19] MEDS: SULFAMETH/TRIMETH INJ 200 MG in DEXTROSE 5% 250 ML IV SCH ×4 (02:22→21:49)
[2022-07-19] MEDS: methylPREDNISolone SOD SUC 40 MG/1 ML VIAL IV SCH ×3 (02:23→18:09)
[2022-07-19] MEDS: METOPROLOL TARTRATE 25 MG TABLET PO SCH ×4 (02:23→21:50)
[2022-07-19 05:48] LABS: Hemoglobin 11.4 GM/DL (14.0-18.0); Immature Granulocytes % 3.7 %; Immature Granulocytes Absolute 1.25 #; Lymphocytes # 1.5 10*3/uL (1.4-4.0); Lymphocytes % 4.4 % (21.2-54.2); Mean Corpuscular HGB Conc 32.6 GM/DL (32-36); Mean Platelet Volume 9.9 FL (9.6-12.0); Monocytes # 0.8 10*3/uL (0.11-0.8); Monocytes % 2.3 % (1.7-12.7); Neutrophils % 89.6 % (38.7-73.9); Platelet Count 271 T/CUMM (130-400); Red Blood Count 3.89 MC/CUMM (3.8-5.5); Red Cell Distribution Width 13.2 % (9.3-17.3); White Blood Count 33.5 T/CUMM (4-12)
[2022-07-19 06:01] LABS: Calcium 10.7 MG/DL (8.5-10.1); Osmolality,Calculated 263.1 MOS/KG (273-304)
[2022-07-19 06:27] LABS: Lymphocytes 2 % (20-55); Total Cells Counted 100
[2022-07-19 06:28] LABS: Hypochromia Slight; Microcytosis Slight; Platelet Estimate Normal
[2022-07-19 06:29] LABS: INR 1.2; PT Patient Result 12.6 SECS (10.1-12.1); Partial Thromboplastin Time 28.5 SECS (23.7-32.9)
[2022-07-19] MEDS ORDERED: MEPERIDINE 50 MG/1 ML VIAL IM ONE (07:30)
[2022-07-19] MEDS ORDERED: BENZONATATE 100 MG CAPSULE PO ONE (07:30)
[2022-07-19] MEDS ORDERED: diphenhydrAMINE 50 MG/1 ML VIAL IM ONE (07:30)
[2022-07-19] MEDS ORDERED: LIDOCAINE 2% 20 ML VIAL RESP TX ONE (08:00)
[2022-07-19] MEDS ORDERED: LIDOCAINE 1% 20 ML VIAL MISC INJ ONE (08:00)
[2022-07-19] MEDS ORDERED: LIDOCAINE 2% VISCOUS 100 ML BOTTLE SWISH/SPIT ONE (08:00)
[2022-07-19 08:49] LABS: Calcium 10.7 MG/DL (8.5-10.1); Osmolality,Calculated 266.8 MOS/KG (273-304); Potassium 4.2 MMOL/L (3.5-5.1)
[2022-07-19] MEDS ORDERED: THEOPHYLLINE ER 300 MG TABLET PO SCH (10:00)
[2022-07-19 10:48] LABS: Basophils # 0.2 10*3/uL (0.0-0.2); Basophils % 0.5 % (0.0-0.8); Hematocrit 33.5 VOL% (42.0-52.0); Hemoglobin 11.1 GM/DL (14.0-18.0); Immature Granulocytes % 3.9 %; Immature Granulocytes Absolute 1.24 #; Lymphocytes # 1.2 10*3/uL (1.4-4.0); Lymphocytes % 3.6 % (21.2-54.2); Mean Corpuscular HGB Conc 33.1 GM/DL (32-36); Mean Corpuscular Volume 89.6 FL (87-102); Mean Platelet Volume 9.7 FL (9.6-12.0); Monocytes # 0.9 10*3/uL (0.11-0.8); Monocytes % 2.9 % (1.7-12.7); Neutrophils % 89.1 % (38.7-73.9); Platelet Count 221 T/CUMM (130-400); Red Blood Count 3.74 MC/CUMM (3.8-5.5); Red Cell Distribution Width 13.2 % (9.3-17.3); White Blood Count 31.8 T/CUMM (4-12)
[2022-07-19] MEDS: INSULIN LISPRO 100 UNIT/ML SUBCUT SCH ×4 (11:01→20:58)
[2022-07-19] MEDS: THEOPHYLLINE ER 300 MG TABLET PO SCH ×2 (11:02→18:09)
[2022-07-19 11:10] LABS: Band Neutrophils 2 % (0-10); Hypochromia Slight; Lymphocytes 3 % (20-55); Total Cells Counted 100
[2022-07-19 11:11] LABS: Microcytosis Slight; Platelet Estimate Normal; Polychromasia Slight
[2022-07-19] MEDS: MONTELUKAST 10 MG TABLET PO SCH (11:21)
[2022-07-19] MEDS: amLODIPine 5 MG TABLET PO SCH (11:21)
[2022-07-19] MEDS: FERROUS SULFATE 325 MG TABLET PO SCH ×2 (11:21→21:50)
[2022-07-19] MEDS: NYSTATIN 500,000 UNIT/5 ML UDCUP SWISH/SWAL SCH ×4 (11:22→21:51)
[2022-07-19] MEDS: LACTULOSE 20 GM/30 ML UDCUP PO SCH (11:22)
[2022-07-19] MEDS: LIDOCAINE 5% PATCH TRANSDERM SCH ×2 (11:22→21:55)
[2022-07-19] MEDS: ENOXAPARIN 40 MG/0.4 ML SYRINGE SUBCUT SCH (18:09)
[2022-07-19] MEDS: PANTOPRAZOLE 40 MG VIAL IV SCH (18:10)
[2022-07-19] MEDS: INSULIN GLARGINE 100 UNIT/ML SUBCUT SCH (21:58)
[2022-07-20] MEDS: methylPREDNISolone SOD SUC 40 MG/1 ML VIAL IV SCH ×3 (01:21→17:46)
[2022-07-20] MEDS: SULFAMETH/TRIMETH INJ 200 MG in DEXTROSE 5% 250 ML IV SCH ×4 (02:56→21:14)
[2022-07-20] MEDS: METOPROLOL TARTRATE 25 MG TABLET PO SCH ×4 (02:57→21:06)
[2022-07-20] MEDS: MORPHINE 2 MG/1 ML SYRINGE IV PRN (05:01)
[2022-07-20 05:47] LABS: Basophils # 0.2 10*3/uL (0.0-0.2); Basophils % 0.6 % (0.0-0.8); Hematocrit 33.1 VOL% (42.0-52.0); Immature Granulocytes % 3.9 %; Lymphocytes % 3.3 % (21.2-54.2); Mean Corpuscular HGB Conc 33.2 GM/DL (32-36); Mean Corpuscular Volume 89.7 FL (87-102); Mean Platelet Volume 9.8 FL (9.6-12.0); Monocytes # 0.8 10*3/uL (0.11-0.8); Monocytes % 2.6 % (1.7-12.7); Neutrophils % 89.6 % (38.7-73.9); Platelet Count 222 T/CUMM (130-400); Red Blood Count 3.69 MC/CUMM (3.8-5.5); Red Cell Distribution Width 13.1 % (9.3-17.3)
[2022-07-20 06:06] LABS: Calcium 10.4 MG/DL (8.5-10.1); Osmolality,Calculated 270.7 MOS/KG (273-304); Potassium 4.4 MMOL/L (3.5-5.1)
[2022-07-20 06:10] LABS: Albumin 2.1 G/DL (3.4-5.0); Bilirubin,Direct 0.4 MG/DL (0.0-0.20); Bilirubin,Indirect 0.4 MG/DL (0.0-1.0); Bilirubin,Total 0.8 MG/DL (0.20-1.00); Total Protein 5.7 G/DL (6.4-8.2)
[2022-07-20 06:20] LABS: Band Neutrophils 1 % (0-10); Hypochromia Slight; Lymphocytes 5 % (20-55); Microcytosis Slight; Platelet Estimate Adequate; Total Cells Counted 100
[2022-07-20] MEDS: ALBUTEROL/IPRATROPIUM 3 ML NEB RESP TX SCH ×3 (07:30→19:28)
[2022-07-20] MEDS: LACTULOSE 20 GM/30 ML UDCUP PO SCH ×2 (09:31→12:04)
[2022-07-20] MEDS: MONTELUKAST 10 MG TABLET PO SCH (09:31)
[2022-07-20] MEDS: amLODIPine 5 MG TABLET PO SCH (09:31)
[2022-07-20] MEDS: FERROUS SULFATE 325 MG TABLET PO SCH ×2 (09:31→21:06)
[2022-07-20] MEDS: NYSTATIN 500,000 UNIT/5 ML UDCUP SWISH/SWAL SCH ×6 (09:31→22:40)
[2022-07-20] MEDS: LIDOCAINE 5% PATCH TRANSDERM SCH ×2 (09:32→21:07)
[2022-07-20] MEDS: INSULIN LISPRO 100 UNIT/ML SUBCUT SCH ×4 (09:32→23:00)
[2022-07-20] MEDS: THEOPHYLLINE ER 300 MG TABLET PO SCH (09:35)
[2022-07-20] MEDS: SODIUM CHLORIDE 0.9% 1,000 ML IV SCH (15:55)
[2022-07-20] MEDS: PANTOPRAZOLE 40 MG VIAL IV SCH (17:46)
[2022-07-20] MEDS: ENOXAPARIN 40 MG/0.4 ML SYRINGE SUBCUT SCH (17:46)
[2022-07-20] MEDS: ONDANSETRON 4 MG/2 ML VIAL IV SCH (17:46)
[2022-07-20] MEDS: INSULIN GLARGINE 100 UNIT/ML SUBCUT SCH (20:25)
[2022-07-21] MEDS: methylPREDNISolone SOD SUC 40 MG/1 ML VIAL IV SCH ×3 (01:26→17:31)
[2022-07-21] MEDS: ALBUTEROL/IPRATROPIUM 3 ML NEB RESP TX SCH ×4 (01:57→19:06)
[2022-07-21] MEDS: SULFAMETH/TRIMETH INJ 200 MG in DEXTROSE 5% 250 ML IV SCH ×4 (02:15→22:30)
[2022-07-21] MEDS: METOPROLOL TARTRATE 25 MG TABLET PO SCH ×4 (02:16→22:00)
[2022-07-21] MEDS: MORPHINE 2 MG/1 ML SYRINGE IV PRN (04:24)
[2022-07-21 06:09] LABS: Basophils # 0.2 10*3/uL (0.0-0.2); Basophils % 0.5 % (0.0-0.8); Hemoglobin 11.3 GM/DL (14.0-18.0); Immature Granulocytes % 4.8 %; Immature Granulocytes Absolute 1.77 #; Lymphocytes # 1.4 10*3/uL (1.4-4.0); Lymphocytes % 3.9 % (21.2-54.2); Mean Corpuscular HGB Conc 32.3 GM/DL (32-36); Mean Corpuscular Volume 90.9 FL (87-102); Mean Platelet Volume 9.7 FL (9.6-12.0); Monocytes # 1.1 10*3/uL (0.11-0.8); Monocytes % 2.9 % (1.7-12.7); Neutrophils % 87.9 % (38.7-73.9); Platelet Count 196 T/CUMM (130-400); Red Blood Count 3.85 MC/CUMM (3.8-5.5); Red Cell Distribution Width 13.4 % (9.3-17.3); White Blood Count 36.5 T/CUMM (4-12)
[2022-07-21 06:32] LABS: Calcium 10.8 MG/DL (8.5-10.1); Lymphocytes 1 % (20-55); Osmolality,Calculated 269.7 MOS/KG (273-304); Platelet Estimate Adequate; Potassium 5.1 MMOL/L (3.5-5.1); Total Cells Counted 100
[2022-07-21] MEDS ORDERED: INSULIN GLARGINE 100 UNIT/ML SUBCUT SCH (08:00)
[2022-07-21] MEDS ORDERED: AZITHROMYCIN INJ 500 MG in SODIUM CHLORIDE 0.9% 250 ML IV ONE (08:12)
[2022-07-21] MEDS: cefTRIAXone 1,000 MG in SODIUM CHLORIDE 0.9% 100 ML IV SCH (09:29)
[2022-07-21] MEDS: LIDOCAINE 5% PATCH TRANSDERM SCH ×2 (09:31→22:01)
[2022-07-21] MEDS: INSULIN LISPRO 100 UNIT/ML SUBCUT SCH ×4 (09:34→22:36)
[2022-07-21] MEDS: ONDANSETRON 4 MG/2 ML VIAL IV SCH ×3 (09:34→17:30)
[2022-07-21] MEDS: INSULIN GLARGINE 100 UNIT/ML SUBCUT SCH (09:34)
[2022-07-21] MEDS: FERROUS SULFATE 325 MG TABLET PO SCH ×2 (09:35→22:01)
[2022-07-21] MEDS: amLODIPine 5 MG TABLET PO SCH (09:35)
[2022-07-21] MEDS: MONTELUKAST 10 MG TABLET PO SCH (09:35)
[2022-07-21] MEDS: THEOPHYLLINE ER 300 MG TABLET PO SCH (09:36)
[2022-07-21] MEDS: LACTULOSE 20 GM/30 ML UDCUP PO SCH (09:47)
[2022-07-21] MEDS: NYSTATIN 500,000 UNIT/5 ML UDCUP SWISH/SWAL SCH ×4 (10:23→22:36)
[2022-07-21] MEDS: SODIUM CHLORIDE 0.9% 1,000 ML IV SCH ×2 (10:24→17:09)
[2022-07-21] MEDS ORDERED: GLUCAGON 1 MG VIAL IM PRN (15:44)
[2022-07-21] MEDS ORDERED: GLUCAGON 1 MG VIAL IV PRN (15:46)
[2022-07-21] MEDS: PANTOPRAZOLE 40 MG VIAL IV SCH (17:31)
[2022-07-21] MEDS: ENOXAPARIN 40 MG/0.4 ML SYRINGE SUBCUT SCH (17:33)
[2022-07-21] MEDS ORDERED: FUROSEMIDE 40 MG/4 ML VIAL IV STA (19:49)
[2022-07-22] MEDS: ALBUTEROL/IPRATROPIUM 3 ML NEB RESP TX SCH ×4 (00:25→19:16)
[2022-07-22] MEDS: SULFAMETH/TRIMETH INJ 200 MG in DEXTROSE 5% 250 ML IV SCH ×3 (02:20→18:29)
[2022-07-22] MEDS: methylPREDNISolone SOD SUC 40 MG/1 ML VIAL IV SCH ×3 (02:20→13:06)
[2022-07-22] MEDS: SODIUM CHLORIDE 0.9% 1,000 ML IV SCH ×2 (02:44→10:57)
[2022-07-22] MEDS: METOPROLOL TARTRATE 25 MG TABLET PO SCH ×4 (03:47→21:16)
[2022-07-22 06:00] LABS: Basophils % 0.1 % (0.0-0.8); Hematocrit 35.2 VOL% (42.0-52.0); Immature Granulocytes % 6.6 %; Immature Granulocytes Absolute 2.58 #; Lymphocytes # 1.5 10*3/uL (1.4-4.0); Lymphocytes % 3.8 % (21.2-54.2); Mean Corpuscular HGB Conc 34.1 GM/DL (32-36); Mean Corpuscular Volume 88.9 FL (87-102); Mean Platelet Volume 9.5 FL (9.6-12.0); Monocytes # 1.1 10*3/uL (0.11-0.8); Monocytes % 2.8 % (1.7-12.7); NRBC # 0.04 10*3/uL; Neutrophils % 86.7 % (38.7-73.9); Red Blood Count 3.96 MC/CUMM (3.8-5.5); Red Cell Distribution Width 13.3 % (9.3-17.3); White Blood Count 39.1 T/CUMM (4-12)
[2022-07-22 06:03] LABS: Platelet Count 127 T/CUMM (130-400)
[2022-07-22 06:17] LABS: Calcium 10.5 MG/DL (8.5-10.1); Osmolality,Calculated 265.4 MOS/KG (273-304); Potassium 5.3 MMOL/L (3.5-5.1)
[2022-07-22 06:18] LABS: Lymphocytes 2 % (20-55); Total Cells Counted 100
[2022-07-22] MEDS: MONTELUKAST 10 MG TABLET PO SCH (08:39)
[2022-07-22] MEDS: FERROUS SULFATE 325 MG TABLET PO SCH ×2 (08:39→21:16)
[2022-07-22] MEDS: cefTRIAXone 1,000 MG in SODIUM CHLORIDE 0.9% 100 ML IV SCH (08:47)
[2022-07-22] MEDS: ONDANSETRON 4 MG/2 ML VIAL IV SCH ×3 (08:54→18:18)
[2022-07-22] MEDS: SODIUM ZIRCONIUM CYCLOSILICATE 10 GM PACK PO SCH ×3 (09:01→21:15)
[2022-07-22] MEDS: amLODIPine 5 MG TABLET PO SCH (09:02)
[2022-07-22] MEDS: NYSTATIN 500,000 UNIT/5 ML UDCUP SWISH/SWAL SCH ×4 (09:02→21:17)
[2022-07-22] MEDS: THEOPHYLLINE ER 300 MG TABLET PO SCH (09:03)
[2022-07-22] MEDS: INSULIN GLARGINE 100 UNIT/ML SUBCUT SCH (09:05)
[2022-07-22] MEDS: LIDOCAINE 5% PATCH TRANSDERM SCH ×2 (09:19→21:12)
[2022-07-22] MEDS: INSULIN LISPRO 100 UNIT/ML SUBCUT SCH ×4 (10:56→21:13)
[2022-07-22] MEDS: AZITHROMYCIN INJ 250 MG in SODIUM CHLORIDE 0.9% 250 ML IV SCH (11:03)
[2022-07-22 11:20] LABS: Calcium 10.6 MG/DL (8.5-10.1); Osmolality,Calculated 271.9 MOS/KG (273-304); Potassium 5.3 MMOL/L (3.5-5.1)
[2022-07-22] MEDS: LACTULOSE 20 GM/30 ML UDCUP PO SCH ×2 (12:15→21:16)
[2022-07-22] MEDS: PANTOPRAZOLE 40 MG VIAL IV SCH (18:18)
[2022-07-22] MEDS: ENOXAPARIN 40 MG/0.4 ML SYRINGE SUBCUT SCH (18:18)
[2022-07-23] MEDS: methylPREDNISolone SOD SUC 40 MG/1 ML VIAL IV SCH (00:16)
[2022-07-23] MEDS: ALBUTEROL/IPRATROPIUM 3 ML NEB RESP TX SCH ×2 (00:21→07:05)
[2022-07-23] MEDS: SULFAMETH/TRIMETH INJ 200 MG in DEXTROSE 5% 250 ML IV SCH (00:28)
[2022-07-23] MEDS: METOPROLOL TARTRATE 25 MG TABLET PO SCH ×2 (02:13→11:56)
[2022-07-23 06:02] LABS: Eosinophils # 0.1 10*3/uL (0.0-0.87); Eosinophils % 0.1 % (0.00-10.9); Hematocrit 35.7 VOL% (42.0-52.0); Hemoglobin 11.9 GM/DL (14.0-18.0); Immature Granulocytes % 7.1 %; Immature Granulocytes Absolute 2.89 #; Lymphocytes # 1.9 10*3/uL (1.4-4.0); Lymphocytes % 4.7 % (21.2-54.2); Mean Corpuscular HGB Conc 33.3 GM/DL (32-36); Mean Corpuscular Volume 90.4 FL (87-102); Mean Platelet Volume 10.6 FL (9.6-12.0); Monocytes # 1.1 10*3/uL (0.11-0.8); Monocytes % 2.8 % (1.7-12.7); Neutrophils % 85.3 % (38.7-73.9); Platelet Count 120 T/CUMM (130-400); Red Blood Count 3.95 MC/CUMM (3.8-5.5); Red Cell Distribution Width 13.5 % (9.3-17.3)
[2022-07-23 06:04] LABS: White Blood Count 40.8 T/CUMM (4-12)
[2022-07-23 06:23] LABS: Albumin 2.3 G/DL (3.4-5.0); Bilirubin,Total 0.8 MG/DL (0.20-1.00); Calcium 10.5 MG/DL (8.5-10.1); Osmolality,Calculated 266.4 MOS/KG (273-304); Potassium 5.2 MMOL/L (3.5-5.1); Total Protein 6.3 G/DL (6.4-8.2)
[2022-07-23 06:35] LABS: Band Neutrophils 1 % (0-10); Lymphocytes 2 % (20-55); Platelet Estimate Normal; Total Cells Counted 100
[2022-07-23] MEDS ORDERED: methylPREDNISolone SOD SUC 40 MG/1 ML VIAL IV SCH (08:30)
[2022-07-23] MEDS ORDERED: AMPICILLIN INJ 1,000 MG in SODIUM CHLORIDE 0.9% 100 ML IV SCH (10:00)
[2022-07-23] MEDS ORDERED: CIPROFLOXACIN INJ 200 MG/100 ML PREMIX IV SCH (10:30)
[2022-07-23] MEDS ORDERED: LORazepam 2 MG/1 ML VIAL IV PRN (11:17)
[2022-07-23 11:34] VITALS: BP 142/70
[2022-07-23] MEDS: SODIUM CHLORIDE 0.9% 1,000 ML IV SCH (11:47)
[2022-07-23] MEDS: INSULIN LISPRO 100 UNIT/ML SUBCUT SCH (11:47)
[2022-07-23] MEDS: ONDANSETRON 4 MG/2 ML VIAL IV SCH (11:48)
[2022-07-23] MEDS: cefTRIAXone 1,000 MG in SODIUM CHLORIDE 0.9% 100 ML IV SCH (11:48)
[2022-07-23] MEDS: MORPHINE 2 MG/1 ML SYRINGE IV PRN ×2 (11:49→14:23)
[2022-07-23] MEDS: LACTULOSE 20 GM/30 ML UDCUP PO SCH (11:54)
[2022-07-23] MEDS: LIDOCAINE 5% PATCH TRANSDERM SCH (11:55)
[2022-07-23] MEDS: FERROUS SULFATE 325 MG TABLET PO SCH (11:55)
[2022-07-23] MEDS: INSULIN GLARGINE 100 UNIT/ML SUBCUT SCH (11:55)
[2022-07-23] MEDS: SODIUM ZIRCONIUM CYCLOSILICATE 10 GM PACK PO SCH (11:55)
[2022-07-23] MEDS: NYSTATIN 500,000 UNIT/5 ML UDCUP SWISH/SWAL SCH (11:56)
[2022-07-23] MEDS: amLODIPine 5 MG TABLET PO SCH (11:56)
[2022-07-23] MEDS: AZITHROMYCIN INJ 250 MG in SODIUM CHLORIDE 0.9% 250 ML IV SCH (11:57)
[2022-07-23] MEDS: MONTELUKAST 10 MG TABLET PO SCH (11:57)
[2022-07-23 14:18] LABS: M. Tuberculosis PCR Result Negative (Negative); M. Tuberculosis PCR Source BRONCH WASH
== END 2022-07-23 14:17 | disposition hospice, inpatient (51) | DRG 871 ==
LOC: EDBD → EDUNIT# → N.ED 13:27 → SUATTDRO 16:11 → N.EDINP 16:11 → N.ICU 16:53 → N.TELEN 07-16 17:13
PROVIDERS: ADMIT Internal Medicine; ATTEND Internal Medicine

== ENCOUNTER 2022-07-23 14:18 | Inpatient (IN) ==
[2022-07-23] MEDS ORDERED: LORazepam 2 MG/1 ML VIAL IV PRN (14:34)
[2022-07-23] MEDS: fentaNYL 50 MCG/HR PATCH TRANSDERM SCH (19:02)
[2022-07-23] MEDS: HYDROmorphone 1 MG/1 ML SYRINGE IV PRN (21:00)
[2022-07-24] MEDS: fentaNYL 50 MCG/HR PATCH TRANSDERM SCH (09:01)
[2022-07-24 20:20] VITALS: BP 90/56
[2022-07-24] MEDS: HYDROmorphone 1 MG/1 ML SYRINGE IV PRN (21:40)
== END 2022-07-25 07:05 | disposition expired | DRG 951 ==
LOC: N.TELEN 14:18
PROVIDERS: ADMIT Internal Medicine; ATTEND Internal Medicine